=== PATIENT | female | born 1930 | race Caucasian/White ===

== ENCOUNTER 2018-07-19 04:31 | Inpatient (IN) | payer MEDICARE | END 2018-07-23 12:40 | disposition swing bed (61) | LOC: ICU 04:31 → 4TH 07-20 11:40 | DX: K56.690 Other partial intestinal obstruction (principal); I48.92 Unspecified atrial flutter; Q43.3 Congenital malformations of intestinal fixation; I13.0 Hypertensive heart and chronic kidney disease with heart failure and stage 1 through stage 4 chronic kidney disease, or unspecified chronic kidney disease; I50.32 Chronic diastolic (congestive) heart failure; N18.3 Chronic kidney disease, stage 3 (moderate); N17.9 Acute kidney failure, unspecified; J98.11 Atelectasis; L03.116 Cellulitis of left lower limb; L97.229 Non-pressure chronic ulcer of left calf with unspecified severity; I48.0 Paroxysmal atrial fibrillation; J44.9 Chronic obstructive pulmonary disease, unspecified; G47.33 Obstructive sleep apnea (adult) (pediatric); I89.0 Lymphedema, not elsewhere classified; I35.0 Nonrheumatic aortic (valve) stenosis; I87.2 Venous insufficiency (chronic) (peripheral); G62.9 Polyneuropathy, unspecified; I73.9 Peripheral vascular disease, unspecified; I27.29 Other secondary pulmonary hypertension; E78.5 Hyperlipidemia, unspecified; F41.9 Anxiety disorder, unspecified; F22 Delusional disorders; K21.9 Gastro-esophageal reflux disease without esophagitis; G30.9 Alzheimer's disease, unspecified; F02.80 Dementia in other diseases classified elsewhere, unspecified severity, without behavioral disturbance, psychotic disturbance, mood disturbance, and anxiety; D64.9 Anemia, unspecified; Z88.0 Allergy status to penicillin; Z88.4 Allergy status to anesthetic agent; Z88.8 Allergy status to other drugs, medicaments and biological substances ==

== ENCOUNTER 2018-07-23 12:47 | Inpatient (IN) | payer MEDICARE | END 2018-07-30 13:02 | disposition home health service (06) | LOC: 4TH 12:47 | DX: J18.1 Lobar pneumonia, unspecified organism (principal); K56.600 Partial intestinal obstruction, unspecified as to cause; J98.11 Atelectasis; I13.0 Hypertensive heart and chronic kidney disease with heart failure and stage 1 through stage 4 chronic kidney disease, or unspecified chronic kidney disease; I50.32 Chronic diastolic (congestive) heart failure; N18.3 Chronic kidney disease, stage 3 (moderate); I48.92 Unspecified atrial flutter; L03.116 Cellulitis of left lower limb; L97.229 Non-pressure chronic ulcer of left calf with unspecified severity; E87.0 Hyperosmolality and hypernatremia; I89.0 Lymphedema, not elsewhere classified; R31.9 Hematuria, unspecified; I48.0 Paroxysmal atrial fibrillation; J44.9 Chronic obstructive pulmonary disease, unspecified; G47.33 Obstructive sleep apnea (adult) (pediatric); G30.9 Alzheimer's disease, unspecified; F02.80 Dementia in other diseases classified elsewhere, unspecified severity, without behavioral disturbance, psychotic disturbance, mood disturbance, and anxiety; I35.0 Nonrheumatic aortic (valve) stenosis; I87.2 Venous insufficiency (chronic) (peripheral); I73.9 Peripheral vascular disease, unspecified; G62.9 Polyneuropathy, unspecified; I27.29 Other secondary pulmonary hypertension; E78.5 Hyperlipidemia, unspecified; F41.9 Anxiety disorder, unspecified; I65.23 Occlusion and stenosis of bilateral carotid arteries; M19.91 Primary osteoarthritis, unspecified site ==

== ENCOUNTER 2018-08-02 17:51 | Inpatient (IN) | payer MEDICARE ==
[~2018-08-02] VITALS: Ht 165.1 cm; Wt 83.0 kg
[~2018-08-02 17:51] MED LIST: ALPR.5T PO; APIX2.5T PO; ASP81TEC PO; ASPI-983 PO; CYAN5000 SL; FLUT1DIS26 IH; FURO20TA4 PO; FURO40TA4 PO; GABA-488 PO; GBPN600T PO; IRON45TA2 PO; LORA10TA7 PO; MAGN400C PO; METO-387 PO; MULT1CAP27 PO; NABU750T PO; OMEP20CA12 PO; OMG1KC PO; POTA10TA PO; POTA20TA15 PO; TRAM50TA2 PO; VLS80C PO
--- OUTSIDE RECORDS SUMMARY | 2018-08-02 17:55 | XMS REPORT | Continuity of Care Document ---
Author Author [facility] Organization [facility] Address Unknown Phone Unavailable Allergies Active Description Code Type Severity Reaction Onset Reported/Identified Relationship to Patient Clinical Status Yes celecoxib [id number] Drug Allergy Unknown N/A 07/19/2018 Yes hydrochlorothiazide [id number] Drug Allergy Unknown N/A 07/19/2018 Yes latex [id number] Drug Allergy Unknown N/A 07/19/2018 Yes Penicillins [id number] Drug Allergy Unknown N/A 07/19/2018 Yes rofecoxib [id number] Drug Allergy Unknown N/A 07/19/2018 Yes spironolactone [id number] Drug Allergy Unknown N/A 07/19/2018 Yes valdecoxib [id number] Drug Allergy Unknown N/A 07/19/2018 Medications There is no data. Problems Date Dx Coded Attending Type Code Diagnosis Diagnosed By 01/10/2015 KRISTY ANDERSON MD Ot 272.4 01/10/2015 KRISTY ANDERSON MD Ot 401.9 01/10/2015 KRISTY ANDERSON MD Ot 416.9 01/10/2015 KRISTY ANDERSON MD Ot 424.1 01/10/2015 KRISTY ANDERSON MD Ot 496 01/11/2015 KRISTY ANDERSON MD Ot 272.4 01/11/2015 KRISTY ANDERSON MD Ot 401.9 01/11/2015 KRISTY ANDERSON MD Ot 416.9 01/11/2015 KRISTY ANDERSON MD Ot 424.1 01/11/2015 KRISTY ANDERSON MD Ot 496 07/22/2018 ROSA ISELA TAN, ERICKA Hahn Ot D64.9 ANEMIA, UNSPECIFIED 07/22/2018 ERICKA NATARAJAN MD Ot E78.5 HYPERLIPIDEMIA, UNSPECIFIED 07/22/2018 ERICKA NATARAJAN MD Ot F02.80 DEMENTIA IN OTH DISEASES CLASSD ELSWHR W 07/22/2018 ERICKA NATARAJAN MD Ot F22 DELUSIONAL DISORDERS 07/22/2018 ERICKA NATARAJAN MD, Ot F41.9 ANXIETY DISORDER, UNSPECIFIED 07/22/2018 ERICKA NATARAJAN MD, Ot G30.9 ALZHEIMER'S DISEASE, UNSPECIFIED 07/22/2018 ERICKA NATARAJAN MD Ot G47.33 OBSTRUCTIVE SLEEP APNEA (ADULT) (PEDIATR 07/22/2018 ERICKA NATARAJAN MD, Ot G62.9 POLYNEUROPATHY, UNSPECIFIED 07/22/2018 ERICKA NATARAJAN MD Ot I13.0 HYP HRT CHR KDNY DIS W HRT FAIL AND ST 07/22/2018 ERICKA NATARAJAN MD, Ot 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 07/22/2018 ERICKA NATARAJAN MD Ot I35.0 NONRHEUMATIC AORTIC (VALVE) STENOSIS 07/22/2018 ERICKA NATARAJAN MD Ot I48.0 PAROXYSMAL ATRIAL FIBRILLATION 07/22/2018 ERICKA NATARAJAN MD Ot I48.92 UNSPECIFIED ATRIAL FLUTTER 07/22/2018 ERICKA NATARAJAN MD Ot I50.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 07/22/2018 ERICKA NATARAJAN MD Ot I73.9 PERIPHERAL VASCULAR DISEASE, UNSPECIFIED 07/22/2018 ERICKA NATARAJAN MD Ot I87.2 VENOUS INSUFFICIENCY (CHRONIC) (PERIPHER 07/22/2018 ERICKA NATARAJAN MD Ot I89.0 LYMPHEDEMA, NOT ELSEWHERE CLASSIFIED 07/22/2018 ERICKA NATARAJAN MD Ot J44.9 CHRONIC OBSTRUCTIVE PULMONARY DISEASE, U 07/22/2018 ERICKA NATARAJAN MD Ot J98.11 ATELECTASIS 07/22/2018 ERICKA NATARAJAN MD Ot K21.9 GASTRO-ESOPHAGEAL REFLUX DISEASE WITHOUT 07/22/2018 ERICKA NATARAJAN MD Ot K56.690 OTHER PARTIAL INTESTINAL OBSTRUCTION 07/22/2018 ERICKA NATARAJAN MD Ot L03.116 CELLULITIS OF LEFT LOWER LIMB 07/22/2018 ERICKA NATARAJAN MD Ot 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 07/22/2018 ERICKA NATARAJAN MD Ot N17.9 ACUTE KIDNEY FAILURE, UNSPECIFIED 07/22/2018 ERICKA NATARAJAN MD Ot N18.3 CHRONIC KIDNEY DISEASE, STAGE 3 (MODERAT 07/22/2018 ERICKA NATARAJAN MD Ot 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 07/22/2018 ERICKA NATARAJAN MD Ot Z88.0 ALLERGY STATUS TO PENICILLIN 07/22/2018 ERICKA NATARAJAN MD Ot Z88.4 ALLERGY STATUS TO ANESTHETIC AGENT STATU 07/22/2018 ERICKA NATARAJAN MD Ot Z88.8 ALLERGY STATUS TO OTH DRUG/MEDS/BIOL SUB 07/23/2018 ERICKA NATARAJAN MD Ot D64.9 ANEMIA, UNSPECIFIED 07/23/2018 ERICKA NATARAJAN MD Ot E78.5 HYPERLIPIDEMIA, UNSPECIFIED 07/23/2018 ERICKA NATARAJAN MD Ot F02.80 DEMENTIA IN [facility] DISEASES CLASSD ELSWHR W 07/23/2018 ERICKA NATARAJAN MD Ot F22 DELUSIONAL DISORDERS 07/23/2018 ERICKA NATARAJAN MD Ot F41.9 ANXIETY DISORDER, UNSPECIFIED 07/23/2018 ERICKA NATARAJAN MD Ot G30.9 ALZHEIMER'S DISEASE, UNSPECIFIED 07/23/2018 ERICKA NATARAJAN MD Ot G47.33 OBSTRUCTIVE SLEEP APNEA (ADULT) (PEDIATR 07/23/2018 ERICKA NATARAJAN MD Ot G62.9 POLYNEUROPATHY, UNSPECIFIED 07/23/2018 ERICKA NATARAJAN MD Ot I13.0 HYP HRT CHR KDNY DIS W HRT FAIL AND ST 07/23/2018 ERICKA NATARAJAN MD Ot 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 07/23/2018 ERICKA NATARAJAN MD Ot I35.0 NONRHEUMATIC AORTIC (VALVE) STENOSIS 07/23/2018 ERICKA NATARAJAN MD Ot I48.0 PAROXYSMAL ATRIAL FIBRILLATION 07/23/2018 ERICKA NATARAJAN MD Ot I48.92 UNSPECIFIED ATRIAL FLUTTER 07/23/2018 ERICKA NATARAJAN MD Ot I50.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 07/23/2018 ERICKA NATARAJAN MD Ot I73.9 PERIPHERAL VASCULAR DISEASE, UNSPECIFIED 07/23/2018 ERICKA NATARAJAN MD Ot I87.2 VENOUS INSUFFICIENCY (CHRONIC) (PERIPHER 07/23/2018 ERICKA NATARAJAN MD Ot I89.0 LYMPHEDEMA, NOT ELSEWHERE CLASSIFIED 07/23/2018 ERICKA NATARAJAN MD, Ot J44.9 CHRONIC OBSTRUCTIVE PULMONARY DISEASE, U 07/23/2018 ERICKA NATARAJAN MD, Ot J98.11 ATELECTASIS 07/23/2018 ERICKA NATARAJAN MD, Ot K21.9 GASTRO-ESOPHAGEAL REFLUX DISEASE WITHOUT 07/23/2018 ERICKA NATARAJAN MD Ot K56.690 OTHER PARTIAL INTESTINAL OBSTRUCTION 07/23/2018 ERICKA NATARAJAN MD Ot L03.116 CELLULITIS OF LEFT LOWER LIMB 07/23/2018 ERICKA NATARAJAN MD Ot 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 07/23/2018 ERICKA NATARAJAN MD Ot N17.9 ACUTE KIDNEY FAILURE, UNSPECIFIED 07/23/2018 ERICKA NATARAJAN MD Ot N18.3 CHRONIC KIDNEY DISEASE, STAGE 3 (MODERAT 07/23/2018 ERICKA NATARAJAN MD Ot 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 07/23/2018 ERICKA NATARAJAN MD Ot Z88.0 ALLERGY STATUS TO PENICILLIN 07/23/2018 ERICKA NATARAJAN MD Ot Z88.4 ALLERGY STATUS TO ANESTHETIC AGENT STATU 07/23/2018 ERICKA NATARAJAN MD Ot Z88.8 ALLERGY STATUS TO [facility] DRUG/MEDS/BIOL SUB 07/23/2018 ERICKA NATARAJAN MD Ot D64.9 ANEMIA, UNSPECIFIED 07/23/2018 ERICKA NATARAJAN MD Ot E78.5 HYPERLIPIDEMIA, UNSPECIFIED 07/23/2018 ERICKA NATARAJAN MD Ot E87.1 HYPO-OSMOLALITY AND HYPONATREMIA 07/23/2018 ERICKA NATARAJAN MD Ot F02.80 DEMENTIA IN OT DISEASES CLASSD ELSWHR W 07/23/2018 ERICKA NATARAJAN MD Ot F22 DELUSIONAL DISORDERS 07/23/2018 ERICKA NATARAJAN MD Ot F41.9 ANXIETY DISORDER, UNSPECIFIED 07/23/2018 ERICKA NATARAJAN MD, Ot G30.9 ALZHEIMER'S DISEASE, UNSPECIFIED 07/23/2018 ERICKA NATARAJAN MD Ot G47.33 OBSTRUCTIVE SLEEP APNEA (ADULT) (PEDIATR 07/23/2018 ERICKA NATARAJAN MD, Ot G62.9 POLYNEUROPATHY, UNSPECIFIED 07/23/2018 ERICKA NATARAJAN MD, Ot I13.0 HYP HRT CHR KDNY DIS W HRT FAIL AND ST 07/23/2018 ERICKA NATARAJAN MD, Ot 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 07/23/2018 ERICKA NATARAJAN MD Ot I35.0 NONRHEUMATIC AORTIC (VALVE) STENOSIS 07/23/2018 ERICKA NATARAJAN MD, Ot I48.0 PAROXYSMAL ATRIAL FIBRILLATION 07/23/2018 ERICKA NATARAJAN MD, Ot I48.92 UNSPECIFIED ATRIAL FLUTTER 07/23/2018 ERICKA NATARAJAN MD Ot I50.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 07/23/2018 ERICKA NATARAJAN MD Ot I73.9 PERIPHERAL VASCULAR DISEASE, UNSPECIFIED 07/23/2018 ERICKA NATARAJAN MD Ot I87.2 VENOUS INSUFFICIENCY (CHRONIC) (PERIPHER 07/23/2018 ERICKA NATARAJAN MD Ot I89.0 LYMPHEDEMA, NOT ELSEWHERE CLASSIFIED 07/23/2018 ERICKA NATARAJAN MD, Ot J18.9 PNEUMONIA, UNSPECIFIED ORGANISM 07/23/2018 ERICKA NATARAJAN MD Ot J44.9 CHRONIC OBSTRUCTIVE PULMONARY DISEASE, U 07/23/2018 ERICKA NATARAJAN MD Ot J98.11 ATELECTASIS 07/23/2018 ERICKA NATARAJAN MD Ot K21.9 GASTRO-ESOPHAGEAL REFLUX DISEASE WITHOUT 07/23/2018 ERICKA NATARAJAN MD Ot K56.690 OTHER PARTIAL INTESTINAL OBSTRUCTION 07/23/2018 ERICKA NATARAJAN MD Ot L03.116 CELLULITIS OF LEFT LOWER LIMB 07/23/2018 ERICKA NATARAJAN MD Ot 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 Results Test Result Range Methicillin resistant Staphylococcus aureus (MRSA) screening culture - 05:10 Methicillin resistant Staphylococcus aureus (MRSA) screening culture NEG NRG Complete blood count (CBC) with automated white blood cell (WBC) differential - 07/19/18 06:31 Blood leukocytes automated count (number/volume) 11.0 10*3/uL 4.3-11.0 Blood erythrocytes automated count (number/volume) 3.88 10*6/uL 4.35-5.85 Venous blood hemoglobin measurement (mass/volume) 11.5 g/dL 11.5-16.0 Blood hematocrit (volume fraction) 36 % 35-52 Automated erythrocyte mean corpuscular volume 93 [foz_us] 80-99 Automated erythrocyte mean corpuscular hemoglobin (mass per erythrocyte) 30 pg 25-34 Automated erythrocyte mean corpuscular hemoglobin concentration measurement ( mass/volume) 32 g/dL 32-36 Automated erythrocyte distribution width ratio 13.8 % 10.0-14.5 Automated blood platelet count (count/volume) 442 10*3/uL 130-400 Automated blood platelet mean volume measurement 9.3 [foz_us] 7.4-10.4 Automated blood neutrophils/100 leukocytes 86 % 42-75 Automated blood lymphocytes/100 leukocytes 6 % 12-44 Blood monocytes/100 leukocytes 7 % 0-12 Automated blood eosinophils/100 leukocytes 0 % 0-10 Automated blood basophils/100 leukocytes 0 % 0-10 Blood neutrophils automated count (number/volume) 9.4 10*3 1.8-7.8 Blood lymphocytes automated count (number/volume) 0.7 10*3 1.0-4.0 Blood monocytes automated count (number/volume) 0.8 10*3 0.0-1.0 Automated eosinophil count 0.0 10*3/uL 0.0-0.3 Automated blood basophil count (count/volume) 0.0 10*3/uL 0.0-0.1 Blood lactic acid measurement (moles/volume) - 07/19/18 06:31 Blood lactic acid measurement (moles/volume) 1.22 mmol/L 0.50-2.00 Comprehensive metabolic panel - 07/19/18 06:31 Serum or plasma sodium measurement (moles/volume) 144 mmol/L 135-145 Serum or plasma potassium measurement (moles/volume) 4.5 mmol/L 3.6-5.0 Serum or plasma chloride measurement (moles/volume) 101 mmol/L 98-107 Carbon dioxide 29 mmol/L 21-32 Serum or plasma anion gap determination (moles/volume) 14 mmol/L 5-14 Serum or plasma urea nitrogen measurement (mass/volume) 55 mg/dL 7-18 Serum or plasma creatinine measurement (mass/volume) 2.35 mg/dL 0.60-1.30 Serum or plasma urea nitrogen/creatinine mass ratio 23 NRG Serum or plasma creatinine measurement with calculation of estimated glomerular filtration rate 19 NRG Serum or plasma glucose measurement (mass/volume) 129 mg/dL 70-105 Serum or plasma calcium measurement (mass/volume) 8.7 mg/dL 8.5-10.1 Serum or plasma total bilirubin measurement (mass/volume) 0.7 mg/dL 0.1-1.0 Serum or plasma alkaline phosphatase measurement (enzymatic activity/volume) 60 U/L 40-136 Serum or plasma aspartate aminotransferase measurement (enzymatic activity/ volume) 14 U/L 5-34 Serum or plasma alanine aminotransferase measurement (enzymatic activity/volume ) 8 U/L 0-55 Serum or plasma protein measurement (mass/volume) 6.1 g/dL 6.4-8.2 Serum or plasma albumin measurement (mass/volume) 3.0 g/dL 3.2-4.5 CALCIUM CORRECTED 9.5 mg/dL 8.5-10.1 Serum or plasma phosphate measurement (mass/volume) - 07/19/18 06:31 Serum or plasma phosphate measurement (mass/volume) 6.0 mg/dL 2.3-4.7 Magnesium - 07/19/18 06:31 Magnesium 2.2 mg/dL 1.8-2.4 Serum or plasma C reactive protein measurement (mass/volume) - 07/19/18 06:31 Serum or plasma C reactive protein measurement (mass/volume) 6.58 mg /dL 0.00-0.50 Automated blood complete blood count (hemogram) panel - 07/19/18 09:30 Blood leukocytes automated count (number/volume) 9.7 10*3/uL 4.3-11.0 Blood erythrocytes automated count (number/volume) 3.85 10*6/uL 4.35-5.85 Venous blood hemoglobin measurement (mass/volume) 11.5 g/dL 11.5-16.0 Blood hematocrit (volume fraction) 36 % 35-52 Automated erythrocyte mean corpuscular volume 94 [foz_us] 80-99 Automated erythrocyte mean corpuscular hemoglobin (mass per erythrocyte) 30 pg 25-34 Automated erythrocyte mean corpuscular hemoglobin concentration measurement ( mass/volume) 32 g/dL 32-36 Automated erythrocyte distribution width ratio 14.0 % 10.0-14.5 Automated blood platelet count (count/volume) 434 10*3/uL 130-400 Automated blood platelet mean volume measurement 9.0 [foz_us] 7.4-10.4 Activated partial thromboplastin time (aPTT) in platelet poor plasma bycoagulation assay - 07/19/18 13:20 Activated partial thromboplastin time (aPTT) in platelet poor plasma bycoagulation assay 105 s 24-35 Whole blood hemoglobin and hematocrit panel - 07/19/18 21:05 Venous blood hemoglobin measurement (mass/volume) 10.3 g/dL 11.5-16.0 Blood hematocrit (volume fraction) 33 % 35-52 Stool occult blood screen - 07/19/18 21:10 Stool gastrointestinal hemoglobin detection NEGATIVE NEGATIVE Activated partial thromboplastin time (aPTT) in platelet poor plasma bycoagulation assay - 07/19/18 22:30 Activated partial thromboplastin time (aPTT) in platelet poor plasma bycoagulation assay 49 s 24-35 Complete blood count (CBC) with automated white blood cell (WBC) differential - 07/20/18 04:10 Blood leukocytes automated count (number/volume) 8.2 10*3/uL 4.3-11.0 Blood erythrocytes automated count (number/volume) 3.67 10*6/uL 4.35-5.85 Venous blood hemoglobin measurement (mass/volume) 10.8 g/dL 11.5-16.0 Blood hematocrit (volume fraction) 35 % 35-52 Automated erythrocyte mean corpuscular volume 96 [foz_us] 80-99 Automated erythrocyte mean corpuscular hemoglobin (mass per erythrocyte) 29 pg 25-34 Automated erythrocyte mean corpuscular hemoglobin concentration measurement ( mass/volume) 31 g/dL 32-36 Automated erythrocyte distribution width ratio 13.7 % 10.0-14.5 Automated blood platelet count (count/volume) 369 10*3/uL 130-400 Automated blood platelet mean volume measurement 9.5 [foz_us] 7.4-10.4 Automated blood neutrophils/100 leukocytes 77 % 42-75 Automated blood lymphocytes/100 leukocytes 13 % 12-44 Blood monocytes/100 leukocytes 10 % 0-12 Automated blood eosinophils/100 leukocytes 1 % 0-10 Automated blood basophils/100 leukocytes 0 % 0-10 Blood neutrophils automated count (number/volume) 6.3 10*3 1.8-7.8 Blood lymphocytes automated count (number/volume) 1.1 10*3 1.0-4.0 Blood monocytes automated count (number/volume) 0.8 10*3 0.0-1.0 Automated eosinophil count 0.0 10*3/uL 0.0-0.3 Automated blood basophil count (count/volume) 0.0 10*3/uL 0.0-0.1 Whole blood basic metabolic panel - 07/20/18 04:10 Serum or plasma sodium measurement (moles/volume) 148 mmol/L 135-145 Serum or plasma potassium measurement (moles/volume) 4.0 mmol/L 3.6-5.0 Serum or plasma chloride measurement (moles/volume) 107 mmol/L 98-107 Carbon dioxide 29 mmol/L 21-32 Serum or plasma anion gap determination (moles/volume) 12 mmol/L 5-14 Serum or plasma urea nitrogen measurement (mass/volume) 51 mg/dL 7-18 Serum or plasma creatinine measurement (mass/volume) 1.70 mg/dL 0.60-1.30 Serum or plasma urea nitrogen/creatinine mass ratio 30 NRG Serum or plasma creatinine measurement with calculation of estimated glomerular filtration rate 28 NRG Serum or plasma glucose measurement (mass/volume) 106 mg/dL 70-105 Serum or plasma calcium measurement (mass/volume) 8.3 mg/dL 8.5-10.1 Serum or plasma phosphate measurement (mass/volume) - 07/20/18 04:10 Serum or plasma phosphate measurement (mass/volume) 4.4 mg/dL 2.3-4.7 Magnesium - 07/20/18 04:10 Magnesium 2.1 mg/dL 1.8-2.4 Activated partial thromboplastin time (aPTT) in platelet poor plasma bycoagulation assay - 07/20/18 04:10 Activated partial thromboplastin time (aPTT) in platelet poor plasma bycoagulation assay 65 s 24-35 Activated partial thromboplastin time (aPTT) in platelet poor plasma bycoagulation assay - 07/20/18 11:35 Activated partial thromboplastin time (aPTT) in platelet poor plasma bycoagulation assay 54 s 24-35 Complete blood count (CBC) with automated white blood cell (WBC) differential - 07/22/18 04:55 Blood leukocytes automated count (number/volume) 9.4 10*3/uL 4.3-11.0 Blood erythrocytes automated count (number/volume) 3.63 10*6/uL 4.35-5.85 Venous blood hemoglobin measurement (mass/volume) 10.6 g/dL 11.5-16.0 Blood hematocrit (volume fraction) 35 % 35-52 Automated erythrocyte mean corpuscular volume 98 [foz_us] 80-99 Automated erythrocyte mean corpuscular hemoglobin (mass per erythrocyte) 29 pg 25-34 Automated erythrocyte mean corpuscular hemoglobin concentration measurement ( mass/volume) 30 g/dL 32-36 Automated erythrocyte distribution width ratio 13.9 % 10.0-14.5 Automated blood platelet count (count/volume) 350 10*3/uL 130-400 Automated blood platelet mean volume measurement 9.5 [foz_us] 7.4-10.4 Automated blood neutrophils/100 leukocytes 84 % 42-75 Automated blood lymphocytes/100 leukocytes 9 % 12-44 Blood monocytes/100 leukocytes 7 % 0-12 Automated blood eosinophils/100 leukocytes 0 % 0-10 Automated blood basophils/100 leukocytes 0 % 0-10 Blood neutrophils automated count (number/volume) 7.9 10*3 1.8-7.8 Blood lymphocytes automated count (number/volume) 0.9 10*3 1.0-4.0 Blood monocytes automated count (number/volume) 0.6 10*3 0.0-1.0 Automated eosinophil count 0.0 10*3/uL 0.0-0.3 Automated blood basophil count (count/volume) 0.0 10*3/uL 0.0-0.1 Comprehensive metabolic panel - 07/22/18 04:55 Serum or plasma sodium measurement (moles/volume) 153 mmol/L 135-145 Serum or plasma potassium measurement (moles/volume) 3.5 mmol/L 3.6-5.0 Serum or plasma chloride measurement (moles/volume) 116 mmol/L 98-107 Carbon dioxide 27 mmol/L 21-32 Serum or plasma anion gap determination (moles/volume) 10 mmol/L 5-14 Serum or plasma urea nitrogen measurement (mass/volume) 43 mg/dL 7-18 Serum or plasma creatinine measurement (mass/volume) 1.21 mg/dL 0.60-1.30 Serum or plasma urea nitrogen/creatinine mass ratio 36 NRG Serum or plasma creatinine measurement with calculation of estimated glomerular filtration rate 42 NRG Serum or plasma glucose measurement (mass/volume) 90 mg/dL 70-105 Serum or plasma calcium measurement (mass/volume) 8.4 mg/dL 8.5-10.1 Serum or plasma total bilirubin measurement (mass/volume) 0.8 mg/dL 0.1-1.0 Serum or plasma alkaline phosphatase measurement (enzymatic activity/volume) 49 U/L 40-136 Serum or plasma aspartate aminotransferase measurement (enzymatic activity/ volume) 15 U/L 5-34 Serum or plasma alanine aminotransferase measurement (enzymatic activity/volume ) 7 U/L 0-55 Serum or plasma protein measurement (mass/volume) 5.4 g/dL 6.4-8.2 Serum or plasma albumin measurement (mass/volume) 2.8 g/dL 3.2-4.5 CALCIUM CORRECTED 9.4 mg/dL 8.5-10.1 Complete urinalysis with reflex to culture - 07/22/18 11:00 Urine color determination YELLOW NRG Urine clarity determination CLEAR NRG Urine pH measurement by test strip 5 5-9 Specific gravity of urine by test strip 1.010 1.016- 1.022 Urine protein assay by test strip, semi-quantitative 2+ NEGATIVE Urine glucose detection by automated test strip NEGATIVE NEGATIVE Erythrocytes detection in urine sediment by light microscopy 5+ NEGATIVE Urine ketones detection by automated test strip NEGATIVE NEGATIVE Urine nitrite detection by test strip NEGATIVE NEGATIVE Urine total bilirubin detection by test strip NEGATIVE NEGATIVE Urine urobilinogen measurement by automated test strip (mass/volume) NORMAL NORMAL Urine leukocyte esterase detection by dipstick NEGATIVE NEGATIVE Automated urine sediment erythrocyte count by microscopy (number/high power field) [HPF] NRG Automated urine sediment leukocyte count by microscopy (number/high power field ) NONE NRG Bacteria detection in urine sediment by light microscopy NEGATIVE NRG Squamous epithelial cells detection in urine sediment by light microscopy NONE NRG Crystals detection in urine sediment by light microscopy NONE NRG Casts detection in urine sediment by light microscopy NONE NRG Mucus detection in urine sediment by light microscopy NEGATIVE NRG Complete urinalysis with reflex to culture NO NRG Bacterial blood culture - 07/22/18 14:32 Bacterial blood culture NG NRG Blood lactic acid measurement (moles/volume) - 07/22/18 14:33 Blood lactic acid measurement (moles/volume) 0.69 mmol/L 0.50-2.00 Bacterial blood culture - 07/22/18 14:37 Bacterial blood culture NG NRG Complete blood count (CBC) with automated white blood cell (WBC) differential - 07/23/18 04:50 Blood leukocytes automated count (number/volume) 9.3 10*3/uL 4.3-11.0 Blood erythrocytes automated count (number/volume) 3.66 10*6/uL 4.35-5.85 Venous blood hemoglobin measurement (mass/volume) 10.8 g/dL 11.5-16.0 Blood hematocrit (volume fraction) 36 % 35-52 Automated erythrocyte mean corpuscular volume 97 [foz_us] 80-99 Automated erythrocyte mean corpuscular hemoglobin (mass per erythrocyte) 30 pg 25-34 Automated erythrocyte mean corpuscular hemoglobin concentration measurement ( mass/volume) 30 g/dL 32-36 Automated erythrocyte distribution width ratio 13.9 % 10.0-14.5 Automated blood platelet count (count/volume) 345 10*3/uL 130-400 Automated blood platelet mean volume measurement 9.3 [foz_us] 7.4-10.4 Automated blood neutrophils/100 leukocytes 77 % 42-75 Automated blood lymphocytes/100 leukocytes 11 % 12-44 Blood monocytes/100 leukocytes 10 % 0-12 Automated blood eosinophils/100 leukocytes 3 % 0-10 Automated blood basophils/100 leukocytes 0 % 0-10 Blood neutrophils automated count (number/volume) 7.1 10*3 1.8-7.8 Blood lymphocytes automated count (number/volume) 1.0 10*3 1.0-4.0 Blood monocytes automated count (number/volume) 0.9 10*3 0.0-1.0 Automated eosinophil count 0.3 10*3/uL 0.0-0.3 Automated blood basophil count (count/volume) 0.0 10*3/uL 0.0-0.1 Whole blood basic metabolic panel - 07/23/18 04:50 Serum or plasma sodium measurement (moles/volume) 150 mmol/L 135-145 Serum or plasma potassium measurement (moles/volume) 3.1 mmol/L 3.6-5.0 Serum or plasma chloride measurement (moles/volume) 113 mmol/L 98-107 Carbon dioxide 30 mmol/L 21-32 Serum or plasma anion gap determination (moles/volume) 7 mmol/L 5-14 Serum or plasma urea nitrogen measurement (mass/volume) 36 mg/dL 7-18 Serum or plasma creatinine measurement (mass/volume) 1.12 mg/dL 0.60-1.30 Serum or plasma urea nitrogen/creatinine mass ratio 32 NRG Serum or plasma creatinine measurement with calculation of estimated glomerular filtration rate 46 NRG Serum or plasma glucose measurement (mass/volume) 132 mg/dL 70-105 Serum or plasma calcium measurement (mass/volume) 8.4 mg/dL 8.5-10.1 Complete blood count (CBC) with automated white blood cell (WBC) differential - 07/24/18 05:28 Blood leukocytes automated count (number/volume) 9.1 10*3/uL 4.3-11.0 Blood erythrocytes automated count (number/volume) 3.54 10*6/uL 4.35-5.85 Venous blood hemoglobin measurement (mass/volume) 10.4 g/dL 11.5-16.0 Blood hematocrit (volume fraction) 34 % 35-52 Automated erythrocyte mean corpuscular volume 97 [foz_us] 80-99 Automated erythrocyte mean corpuscular hemoglobin (mass per erythrocyte) 29 pg 25-34 Automated erythrocyte mean corpuscular hemoglobin concentration measurement ( mass/volume) 30 g/dL 32-36 Automated erythrocyte distribution width ratio 13.6 % 10.0-14.5 Automated blood platelet count (count/volume) 301 10*3/uL 130-400 Automated blood platelet mean volume measurement 10.1 [foz_us] 7.4-10.4 Automated blood neutrophils/100 leukocytes 74 % 42-75 Automated blood lymphocytes/100 leukocytes 12 % 12-44 Blood monocytes/100 leukocytes 9 % 0-12 Automated blood eosinophils/100 leukocytes 5 % 0-10 Automated blood basophils/100 leukocytes 0 % 0-10 Blood neutrophils automated count (number/volume) 6.7 10*3 1.8-7.8 Blood lymphocytes automated count (number/volume) 1.1 10*3 1.0-4.0 Blood monocytes automated count (number/volume) 0.8 10*3 0.0-1.0 Automated eosinophil count 0.4 10*3/uL 0.0-0.3 Automated blood basophil count (count/volume) 0.0 10*3/uL 0.0-0.1 Whole blood basic metabolic panel - 07/24/18 05:28 Serum or plasma sodium measurement (moles/volume) 146 mmol/L 135-145 Serum or plasma potassium measurement (moles/volume) 3.4 mmol/L 3.6-5.0 Serum or plasma chloride measurement (moles/volume) 109 mmol/L 98-107 Carbon dioxide 30 mmol/L 21-32 Serum or plasma anion gap determination (moles/volume) 7 mmol/L 5-14 Serum or plasma urea nitrogen measurement (mass/volume) 28 mg/dL 7-18 Serum or plasma creatinine measurement (mass/volume) 1.04 mg/dL 0.60-1.30 Serum or plasma urea nitrogen/creatinine mass ratio 27 NRG Serum or plasma creatinine measurement with calculation of estimated glomerular filtration rate 50 NRG Serum or plasma glucose measurement (mass/volume) 119 mg/dL 70-105 Serum or plasma calcium measurement (mass/volume) 8.2 mg/dL 8.5-10.1 Whole blood basic metabolic panel - 07/25/18 09:55 Serum or plasma sodium measurement (moles/volume) 139 mmol/L 135-145 Serum or plasma potassium measurement (moles/volume) 3.7 mmol/L 3.6-5.0 Serum or plasma chloride measurement (moles/volume) 102 mmol/L 98-107 Carbon dioxide 30 mmol/L 21-32 Serum or plasma anion gap determination (moles/volume) 7 mmol/L 5-14 Serum or plasma urea nitrogen measurement (mass/volume) 22 mg/dL 7-18 Serum or plasma creatinine measurement (mass/volume) 0.94 mg/dL 0.60-1.30 Serum or plasma urea nitrogen/creatinine mass ratio 23 NRG Serum or plasma creatinine measurement with calculation of estimated glomerular filtration rate 56 NRG Serum or plasma glucose measurement (mass/volume) 112 mg/dL 70-105 Serum or plasma calcium measurement (mass/volume) 8.0 mg/dL 8.5-10.1 Serum or plasma lithium measurement (moles/volume) - 07/27/18 08:50 BNP level 261.5 pg/mL <100.0 Automated blood complete blood count (hemogram) panel - 07/28/18 05:25 Blood leukocytes automated count (number/volume) 21.5 10*3/uL 4.3-11.0 Blood erythrocytes automated count (number/volume) 3.49 10*6/uL 4.35-5.85 Venous blood hemoglobin measurement (mass/volume) 10.3 g/dL 11.5-16.0 Blood hematocrit (volume fraction) 32 % 35-52 Automated erythrocyte mean corpuscular volume 93 [foz_us] 80-99 Automated erythrocyte mean corpuscular hemoglobin (mass per erythrocyte) 30 pg 25-34 Automated erythrocyte mean corpuscular hemoglobin concentration measurement ( mass/volume) 32 g/dL 32-36 Automated erythrocyte distribution width ratio 13.4 % 10.0-14.5 Automated blood platelet count (count/volume) 333 10*3/uL 130-400 Automated blood platelet mean volume measurement 10.6 [foz_us] 7.4-10.4 Comprehensive metabolic panel - 07/28/18 05:25 Serum or plasma sodium measurement (moles/volume) 131 mmol/L 135-145 Serum or plasma potassium measurement (moles/volume) 3.9 mmol/L 3.6-5.0 Serum or plasma chloride measurement (moles/volume) 98 mmol/L 98-107 Carbon dioxide 26 mmol/L 21-32 Serum or plasma anion gap determination (moles/volume) 7 mmol/L 5-14 Serum or plasma urea nitrogen measurement (mass/volume) 24 mg/dL 7-18 Serum or plasma creatinine measurement (mass/volume) 1.09 mg/dL 0.60-1.30 Serum or plasma urea nitrogen/creatinine mass ratio 22 NRG Serum or plasma creatinine measurement with calculation of estimated glomerular filtration rate 47 NRG Serum or plasma glucose measurement (mass/volume) 88 mg/dL 70-105 Serum or plasma calcium measurement (mass/volume) 7.6 mg/dL 8.5-10.1 Serum or plasma total bilirubin measurement (mass/volume) 1.2 mg/dL 0.1-1.0 Serum or plasma alkaline phosphatase measurement (enzymatic activity/volume) 53 U/L 40-136 Serum or plasma aspartate aminotransferase measurement (enzymatic activity/ volume) 15 U/L 5-34 Serum or plasma alanine aminotransferase measurement (enzymatic activity/volume ) 12 U/L 0-55 Serum or plasma protein measurement (mass/volume) 4.7 g/dL 6.4-8.2 Serum or plasma albumin measurement (mass/volume) 2.2 g/dL 3.2-4.5 CALCIUM CORRECTED 9.0 mg/dL 8.5-10.1 Blood lactic acid measurement (moles/volume) - 07/28/18 08:00 Blood lactic acid measurement (moles/volume) 0.60 mmol/L 0.50-2.00 Bacterial blood culture - 07/28/18 08:00 Bacterial blood culture NG NRG Bacterial blood culture - 07/28/18 08:05 Bacterial blood culture NG NRG Methicillin resistant Staphylococcus aureus (MRSA) screening culture - 11:30 MRSA SCREEN RESULT MRSA ISOLATED NRG Complete blood count (CBC) with automated white blood cell (WBC) differential - 07/30/18 07:50 Blood leukocytes automated count (number/volume) 11.9 10*3/uL 4.3-11.0 Blood erythrocytes automated count (number/volume) 3.24 10*6/uL 4.35-5.85 Venous blood hemoglobin measurement (mass/volume) 9.5 g/dL 11.5-16.0 Blood hematocrit (volume fraction) 30 % 35-52 Automated erythrocyte mean corpuscular volume 92 [foz_us] 80-99 Automated erythrocyte mean corpuscular hemoglobin (mass per erythrocyte) 29 pg 25-34 Automated erythrocyte mean corpuscular hemoglobin concentration measurement ( mass/volume) 32 g/dL 32-36 Automated erythrocyte distribution width ratio 13.6 % 10.0-14.5 Automated blood platelet count (count/volume) 369 10*3/uL 130-400 Automated blood platelet mean volume measurement 9.4 [foz_us] 7.4-10.4 Automated blood neutrophils/100 leukocytes 80 % 42-75 Automated blood lymphocytes/100 leukocytes 7 % 12-44 Blood monocytes/100 leukocytes 10 % 0-12 Automated blood eosinophils/100 leukocytes 2 % 0-10 Automated blood basophils/100 leukocytes 0 % 0-10 Blood neutrophils automated count (number/volume) 9.5 10*3 1.8-7.8 Blood lymphocytes automated count (number/volume) 0.8 10*3 1.0-4.0 Blood monocytes automated count (number/volume) 1.2 10*3 0.0-1.0 Automated eosinophil count 0.3 10*3/uL 0.0-0.3 Automated blood basophil count (count/volume) 0.0 10*3/uL 0.0-0.1 Comprehensive metabolic panel - 07/30/18 07:50 Serum or plasma sodium measurement (moles/volume) 135 mmol/L 135-145 Serum or plasma potassium measurement (moles/volume) 3.5 mmol/L 3.6-5.0 Serum or plasma chloride measurement (moles/volume) 101 mmol/L 98-107 Carbon dioxide 28 mmol/L 21-32 Serum or plasma anion gap determination (moles/volume) 6 mmol/L 5-14 Serum or plasma urea nitrogen measurement (mass/volume) 23 mg/dL 7-18 Serum or plasma creatinine measurement (mass/volume) 0.93 mg/dL 0.60-1.30 Serum or plasma urea nitrogen/creatinine mass ratio 25 NRG Serum or plasma creatinine measurement with calculation of estimated glomerular filtration rate 57 NRG Serum or plasma glucose measurement (mass/volume) 85 mg/dL 70-105 Serum or plasma calcium measurement (mass/volume) 7.9 mg/dL 8.5-10.1 Serum or plasma total bilirubin measurement (mass/volume) 1.1 mg/dL 0.1-1.0 Serum or plasma alkaline phosphatase measurement (enzymatic activity/volume) 63 U/L 40-136 Serum or plasma aspartate aminotransferase measurement (enzymatic activity/ volume) 19 U/L 5-34 Serum or plasma alanine aminotransferase measurement (enzymatic activity/volume ) 14 U/L 0-55 Serum or plasma protein measurement (mass/volume) 4.7 g/dL 6.4-8.2 Serum or plasma albumin measurement (mass/volume) 2.3 g/dL 3.2-4.5 CALCIUM CORRECTED 9.3 mg/dL 8.5-10.1 Encounters ACCT No. Visit Date/Time Discharge Status Pt. Type Provider Facility Loc./Unit Complaint [id number] 07/23/2018 12:47:00 07/30/2018 13:02:00 DIS Inpatient RIMMA TAN, CHARLIE Hahn [facility] 4TH SWB, SBO [id number] 07/19/2018 04:31:00 07/23/2018 12:40:00 DIS Outpatient ROSA ISELA TAN, ERICKA Hahn [facility] 4TH DUEODEUM OBSTRUCTION [id number] 12/19/2014 10:58:00 12/19/2014 23:59:59 CLS Outpatient JUSTIN TAN, KRISTY Koo [facility] CARD [id number] 10/24/2013 09:41:00 10/24/2013 23:59:59 CLS Outpatient [id number] 12/09/2012 10:46:00 12/09/2012 23:59:59 CLS Outpatient
[2018-08-02] MEDS ORDERED: LACTATED RINGERS 1,000 ML IV ONE (17:59)
[2018-08-02] MEDS ORDERED: CEFEPIME INJECTION 1,000 MG in NS (IVPB) 50 ML IV ONE (18:00)
[2018-08-02] MEDS ORDERED: DEXAMETHASONE 4 MG/ML SDV (DECADRON) IH ONE (18:00)
[2018-08-02] MEDS ORDERED: RT-ALBUTEROL/IPRATROPIUM 3 ML (DUONEB) VIAL INH ONE (18:00)
--- NOTE | 2018-08-02 18:11 | ED Respiratory ---
General Stated Complaint: DECREASED LOC Source: family (NIECE AND [id number]), EMS Exam Limitations: other (PT APPEARS CONFUSED AND IS UNABLE TO GIVE ANY SIGNIFICANT INFORMATION--DOES NOT KNOW WHY SHE IS HERE OR WHERE SHE IS) History of Present Illness Date Seen by Provider: Aug 02, 2018 Time Seen by Provider: 17:52 Initial Comments PT [facility] FROM [facility], FROM HOME EMS REPORT THAT VICKIE CALLED AND THE ONLY INFORMATION SHE COULD GIVE WAS " THINK THE PNEUMONIA'S BACK" PT WAS ADMITTED HERE LAST WEEK FOR PNEUMONIA AND DISMISSED Thursday07/30/18 EMS REPORT THAT PT HAD HOME HEALTH NURSE THERE THIS MORNING PT WAS ON HOME O2 AND O2 SAT WAS IN UPPER 90'S PER EMS EMS REPORT THAT PT HAD DECREASED MENTATION AND ONLY RESPONDED TO STERNAL RUB WHEN THEY ARRIVED AT THE SCENE. EMS REPORT THAT PT WAS ABLE TO STAND WITH ASSIST FOR TRANSFER TO EMS COT. EMS REPORT THAT PT HAS INCREASED MENTATION NOW BUT IS CONFUSED. EMS REPORT THAT PT WAS JUST DX WITH ATRIAL FIBRILLATION WITH THIS RECENT HOSPITALIZATION, HEART RATE HAS BEEN IN 60'S-70'S FOR EMS BP HAS BEEN LOW--INITIAL BP WAS 100/53, EMS GAVE 250 ML BOLUS OF SALINE, BP 110/ 59, THEN DROPPED TO 95/70 NO OTHER TREATMENT OR INTERVENTION FROM EMS. ON DIRECT QUESTIONING IF SHE IS HAVING A HARD TIME BREATHING, SHE STATES "YES" WHEN ASKED IF SHE WAS HURTING ANYWHERE, SHE REPLIES "75" THREE TIMES. NO OTHER INFORMATION IS OBTAINABLE FROM PT PT WAS ADMITTED -07/30/18 PT WAS INITIALLY ADMITTED FOR 3 DAY HISTORY OF ABDOMINAL PAIN AND VOMITING AND WAS FOUND TO HAVE A BOWEL OBSTRUCTION--RESOLVED WITHOUT SURGERY. PT DEVELOPED COMPLICATIONS, INCLUDING ATRIAL FIBRILLATION AND PNEUMONIA NIECE ( DPOA ) AND [id number] ARE HERE AND GIVE ADDITIONAL INFORMATION: PT WITH DEMENTIA PT HAD BEEN LIVING ON HER OWN UNTIL THIS RECENT ADMIT SINCE DISMISSED, FAMILY MEMBERS HAVE BEEN STAYING WITH PT SINCE RECENT HOSPITALIZATION, PT'S CONFUSION HAS SIGNIFICANTLY WORSENED FAMILY REPORT THAT PT HAD NOT BEEN ON HOME O2 PRIOR TO DISMISSAL, BUT HAD HAD CPAP AT HOME, BUT HAS NOT BEEN USING IT FAMILY STATE THAT SHE WAS "FAIRLY COHERENT" THIS AM, PT HAD HOME HEALTH THIS AM AND THEY AMBULATED HER A LITTLE. HOME HEALTH NURSE WAS THERE THIS AFTERNOON. PT HAD SLEPT ALL AFTERNOON, AND THEN THIS EVENING "COULDN'T GET HER TO WAKE UP" AND HER BREATHING HAS GOTTEN MUCH MORE LABORED. NO REPORTED FEVER AT HOME NO INCREASED IN CHRONIC LEG SWELLING. LEFT LEG IS ALWAYS MORE SWOLLEN THAN RIGHT --AND ALWAYS HAS SOME REDNESS AND SCALING TO LEFT LOWER LEG, NO DIFFERENT THAN NORMAL PCP: FT. ALISIA BUSTOS--HAS AN APPOINTMENT TOMORROW FOR FOLLOW UP OPERATIONS ENGINEER: DR. ANDERSON Allergies and Home Medications Allergies Coded Allergies: Penicillins (Verified Allergy, Unknown, 07/19/18) celecoxib (Verified Allergy, Unknown, 07/19/18) hydrochlorothiazide (Verified Allergy, Unknown, 07/19/18) latex (Verified Allergy, Unknown, 07/19/18) rofecoxib (Verified Allergy, Unknown, 07/19/18) spironolactone (Verified Allergy, Unknown, 07/19/18) valdecoxib (Verified Allergy, Unknown, 07/19/18) Home Medications Apixaban 2.5 Mg Tablet, 2.5 MG PO BID Prescribed by: IRINA LUX on 07/30/18 1043 Aspirin 81 Mg Tablet.dr, 81 MG PO DAILY, (Reported) Furosemide 40 Mg Tablet, 40 MG PO DAILY, (Reported) Gabapentin 300 Mg Capsule, 600 MG PO DAILY, (Reported) TAKES 2 (300MG) CAPSULES Metoprolol Succinate 25 Mg Tab.er.24h, 25 MG PO DAILY, (Reported) Omeprazole 20 Mg Capsule.dr, 20 MG PO DAILY, (Reported) Potassium Chloride 10 Meq Tablet.er, 20 MEQ PO DAILY, (Reported) TAKES 2 (10MEQ) TABLETS Patient Home Medication List Home Medication List Reviewed: Yes Review of Systems Review of Systems Constitutional: other (UNABLE TO OBTAIN FROM PT) Respiratory: see HPI Psychiatric/Neurological: See HPI Past [id number] Hx Patient Social History Alcohol Use: Denies Use Recreational Drug Use: No Smoking Status: Never a Smoker 2nd Hand Smoke Exposure: Yes ( SMOKED CIGARS) Recent Foreign Travel: No Contact w/Someone Who Travel: No Immunizations Up To Date Date of Pneumonia Vaccine: Mar 06, 2018 Date of Influenza Vaccine: Jun 05, 2018 Seasonal Allergies Seasonal Allergies: Yes Past Medical History Surgeries: Yes (LEFT KNEE REPLACEMENT; HYST--UNKNOWN IF PT HAD BSO) Eye Surgery, Gallbladder, Hysterectomy, Joint Replacement, Orthopedic Respiratory: Yes Sleep Apnea Currently Using CPAP: Yes (HAS CPAP MACHINE, BUT FAMILY REPORTS THAT PT DOES NOT USE IT) Cardiac: Yes (AORTIC STENOSIS; "MYOCARDIAL STRAIN" PER FAMILY; ATRIAL FIB DX ) Atrial Fibrillation, Chronic Edema/Swelling, Heart Murmur, Hypertension, Valvular Heart Disease Neurological: Yes Dementia Genitourinary: Yes Bladder Infection Gastrointestinal: Yes Gastroesophageal Reflux, Chronic Diarrhea Musculoskeletal: Yes (LEFT ANKLE DEFORMITY; LEFT KNEE REPLACEMENT) Arthritis Endocrine: No HEENT: Yes Cataract Cancer: No Psychosocial: Yes (PARANOIA) Anxiety Integumentary: Yes (CHRONIC SKIN CHANGES LEFT LOWER LEG. ) Recent Skin Changes Blood Disorders: No Family Medical History Heart Disease, Cancer, CAD Under 55 Years Old, CAD Over 55 Years Old, Hypertension Physical Exam Vital Signs - First Documented 08/02/18 17:52 Temp 98.0 Pulse 66 Resp 25 Pulse Ox 96 O2 Delivery Nasal Cannula O2 Flow Rate 2.00 Capillary Refill : Height: 5'6.00" Weight: 162lbs. 4.0oz. 73.731572mn; 26.5 BMI Method: General Appearance: moderate distress (PT LETHARGIC, BUT AWAKE AND TALKING, PT WITH MODERATE DYSPNEA AND ABDOMINAL RETRACTIONS. ), obese, other (SPEECH SOMEWHAT THICK-TONGUED, ORAL MUCOSA VERY DRY. ) HEENT: PERRL/EOMI, other Respiratory: respiratory distress, decreased breath sounds (MINIMAL AERATION IN ALL LUNG REDMOND), accessory muscle use Cardiovascular: systolic murmur (4-5/6 ), irregularly irregular Gastrointestinal: non tender, soft Extremities: pedal edema (2+ ON RIGHT, 3+ ON LEFT. ), other (CHRONIC VENOUS STASIS CHANGES / ERYTHEMA AND OLD SCALING OF LEFT LOWER LEG--STOPS AT ANKLE. ) Neurologic/Psychiatric: no motor/sensory deficits (GROSSLY INTACT), other ( LETHARGIC. CONFUSED TO TIME, PLACE, SITUATION, POOR MEMORY. ORIENTED ONLY TO PERSON. ) Skin: normal color, warm/dry, other ( ABOVE) Focused Exam Lactate Level 08/02/18 17:56: Lactic Acid Level 0.72 Lactic Acid Level Laboratory Tests Test 08/02/18 17:56 Lactic Acid Level 0.72 MMOL/L (0.50-2.00) Progress/Results/Core Measures Suspected Sepsis SIRS Temperature: Pulse: Respiratory Rate: Laboratory Tests 08/02/18 17:56: White Blood Count 8.9 Blood Pressure / Mean: 08/02/18 17:56: Lactic Acid Level 0.72 Laboratory Tests 08/02/18 17:56: Creatinine 0.99, INR Comment 1.2, Platelet Count 500H, Total Bilirubin 0.6 Results/Orders Lab Results Laboratory Tests Test 08/02/18 17:56 08/02/18 18:08 Range/Units White Blood Count 8.9 4.3-11.0 10^3/uL Red Blood Count 3.44 L 4.35-5.85 10^6/uL Hemoglobin 10.4 L 11.5-16.0 G/DL Hematocrit 34 L 35-52 % Mean Corpuscular Volume 99 80-99 FL Mean Corpuscular Hemoglobin 30 25-34 PG Mean Corpuscular Hemoglobin Concent 31 L 32-36 G/DL Red Cell Distribution Width 14.3 10.0-14.5 % Platelet Count 500 H 130-400 10^3/uL Mean Platelet Volume 9.3 7.4-10.4 FL Neutrophils (%) (Auto) 73 42-75 % Lymphocytes (%) (Auto) 13 12-44 % Monocytes (%) (Auto) 11 0-12 % Eosinophils (%) (Auto) 3 0-10 % Basophils (%) (Auto) 0 0-10 % Neutrophils # (Auto) 6.5 1.8-7.8 X 10^3 Lymphocytes # (Auto) 1.2 1.0-4.0 X 10^3 Monocytes # (Auto) 0.9 0.0-1.0 X 10^3 Eosinophils # (Auto) 0.3 0.0-0.3 10^3/uL Basophils # (Auto) 0.0 0.0-0.1 10^3/uL Prothrombin Time 15.1 H 12.2-14.7 SEC INR Comment 1.2 0.8-1.4 Activated Partial Thromboplast Time 34 24-35 SEC Sodium Level 138 135-145 MMOL/L Potassium Level 4.8 3.6-5.0 MMOL/L Chloride Level 99 98-107 MMOL/L Carbon Dioxide Level 31 21-32 MMOL/L Anion Gap 8 5-14 MMOL/L Blood Urea Nitrogen 19 H 7-18 MG/DL Creatinine 0.99 0.60-1.30 MG/DL Estimat Glomerular Filtration Rate 53 BUN/Creatinine Ratio 19 Glucose Level 160 H 70-105 MG/DL Lactic Acid Level 0.72 0.50-2.00 MMOL/L Calcium Level 8.4 L 8.5-10.1 MG/DL Corrected Calcium 9.3 8.5-10.1 MG/DL Total Bilirubin 0.6 0.1-1.0 MG/DL Aspartate Amino Transf (AST/SGOT) 32 5-34 U/L Alanine Aminotransferase (ALT/SGPT) 35 0-55 U/L Alkaline Phosphatase 86 40-136 U/L Troponin I 0.031 <0.028 NG/ML B-Type Natriuretic Peptide 575.5 H <100.0 PG/ML Total Protein 5.9 L 6.4-8.2 GM/DL Albumin 2.9 L 3.2-4.5 GM/DL Urine Color YELLOW Urine Clarity SLIGHTLY CLOUDY Urine pH 5 5-9 Urine Specific [place] 1.010 L 1.016-1.022 Urine Protein 1+ H NEGATIVE Urine Glucose (UA) NEGATIVE NEGATIVE Urine Ketones NEGATIVE NEGATIVE Urine Nitrite NEGATIVE NEGATIVE Urine Bilirubin NEGATIVE NEGATIVE Urine Urobilinogen NORMAL NORMAL MG/DL Urine Leukocyte Esterase NEGATIVE NEGATIVE Urine RBC (Auto) 4+ H NEGATIVE Urine RBC RARE /HPF Urine WBC NONE /HPF Urine Squamous Epithelial Cells NONE /HPF Urine Crystals NONE /LPF Urine Amorphous Sediment FEW SHLOMO URATES H /LPF Urine Bacteria NEGATIVE /HPF Urine Casts PRESENT /LPF Urine Hyaline Casts 10-25 H /LPF Urine Mucus NEGATIVE /LPF Urine Culture Indicated NO Micro Results Microbiology 08/02/18 Influenza Types A,B Antigen ([facility]) - Final, Complete My Orders Orders - FIDE OTTO DO Cbc With Automated Diff (08/02/18 17:59) Comprehensive Metabolic Panel (08/02/18 17:59) Blood Culture (08/02/18 17:59) Sputum Culture (08/02/18 17:59) Urinalysis (08/02/18 17:59) Urine Culture (08/02/18 17:59) Protime With Inr (08/02/18 17:59) Partial Thromboplastin Time (08/02/18 17:59) Chest 1 View, Ap/Pa Only (08/02/18 17:59) Saline Lock/Iv-Start (08/02/18 17:59) Saline Lock/Iv-Start (08/02/18 17:59) Ekg Tracing (08/02/18 17:59) Troponin I (08/02/18 17:59) O2 (08/02/18 17:59) Remove Rings In Anticipation O (08/02/18 17:59) Lactic Acid Analyzer (08/02/18 17:59) Influenza A And B Antigens (08/02/18 17:59) Lactated Ringers (Lr 1000 Ml Iv Solution (08/02/18 17:59) Cefepime Injection (Maxipime Injection) (08/02/18 18:00) Albuterol/Ipra Inhalation Soln (Duoneb I (08/02/18 18:00) Dexamethasone Injection (Decadron Inject (08/02/18 18:00) Rt Request For Service (08/02/18 17:59) Svn Small Volume Nebulizer (08/02/18 17:59) Albuterol Pre-Mix Nebs (Rt) (Proventil (08/02/18 18:23) Methylprednisolone Sod Succ (Solu-Medrol (08/02/18 18:30) Furosemide Injection (Lasix Injection) (08/02/18 19:00) BNP (08/02/18 18:52) Medications Given in ED Vital Signs/I&O 08/02/18 08/02/18 08/02/18 17:52 18:38 19:00 Temp 98.0 Pulse 66 Resp 25 B/P (MAP) Pulse Ox 96 95 O2 Delivery Nasal Cannula Nasal Cannula Room Air O2 Flow Rate 2.00 2.00 08/03/18 00:00 Intake Total 550 ml Balance 550 ml Capillary Refill : Progress Note : Progress Note GIVEN HOUR LONG NEB TREATMENT. INCREASED AERATION, AND BREATHING IS LESS LABORED , BUT STILL HAVING SOME MILD ABDOMINAL RETRACTIONS, AND RESIDUAL WHEEZING. O2 SATS REMAINED IN MID TO UPPER 90'S. BP IN 90'S-LOW 100'S SYSTOLIC, HEART RATE REMAINED IN 60' 2030-JUST PRIOR TO PT BEING TRANSFERRED TO FLOOR, PT IS NOTED TO HAVE A DECREASE IN MENTATION--VERY SEDATE AND ROUSES TO STERNAL RUB. BP 85 SYSTOLIC, O2 SATS 98%--CALLED RT, THEY WILL DO ABG'S SOON PT ARRIVES ON THE FLOOR AND PLACE PT ON BIPAP SOON SHE ARRIVES. DISCUSSED WITH FAMILY AND CONFIRMED THAT PT IS DNR/DNI ECG Initial ECG Impression Date: Aug 02, 2018 Initial ECG Impression Time: 18:15 Initial ECG Rate: 65 Initial ECG Rhythm: A Fib/Flutter (RBBB, INFERIOR Q-WAVES) Initial ECG Comparisson: No Previous ECG Available (UNABLE TO LOCATE ANY PREVIOUS EKG) Diagnostic Imaging Comments CXR--PERSISTENT OPACITY IN LEFT BASE, CONCERNING FOR PNEUMONIA, PERSISTENT RIGHT PLEURAL EFFUSION. --PER RADIOLOGIST REPORT. Reviewed: Reviewed by Me Departure Communication (Admissions) 1899--DISCUSSED WITH DR. WAITE, HOSPITALIST, ACCEPTS PT FOR ADMIT. Impression Primary Impression: Respiratory distress Additional Impressions: Pneumonia CHF (congestive heart failure) Pleural effusion on right Atrial fibrillation Hypotension Dementia Aortic stenosis CO2 narcosis Disposition: ADMITTED INPATIENT Condition: Stable Admissions Decision to Admit Reason: Admit from ER (General) Decision to Admit/Date: Aug 02, 2018 Time/Decision to Admit Time: 19:00 Departure-Patient Inst. Referrals: ISABEL HICKS MD (PCP/Family) Primary Care Physician FIDE OTTO DO Aug 02, 2018 18:11
[2018-08-02 18:17] LABS: BASOPHILS % (AUTO) 0 % (0-10); EOSINOPHILS # (AUTO) 0.3 10^3/uL (0.0-0.3); EOSINOPHILS % (AUTO) 3 % (0-10); HEMATOCRIT 34 % (35-52); HEMOGLOBIN 10.4 G/DL (11.5-16.0); LYMPHOCYTES # (AUTO) 1.2 X 10^3 (1.0-4.0); LYMPHOCYTES % (AUTO) 13 % (12-44); MEAN CORPUSCULAR HEMOGLOBIN 30 PG (25-34); MEAN CORPUSCULAR HGB CONC 31 G/DL (32-36); MEAN CORPUSCULAR VOLUME 99 FL (80-99); MEAN PLATELET VOLUME 9.3 FL (7.4-10.4); MONOCYTES # (AUTO) 0.9 X 10^3 (0.0-1.0); MONOCYTES % (AUTO) 11 % (0-12); NEUTROPHILS # (AUTO) 6.5 X 10^3 (1.8-7.8); NEUTROPHILS % (AUTO) 73 % (42-75); PLATELET COUNT 500 10^3/uL (130-400); RED CELL DISTRIBUTION WIDTH 14.3 % (10.0-14.5); WHITE BLOOD COUNT 8.9 10^3/uL (4.3-11.0)
[2018-08-02 18:20] LABS: BILIRUBIN,URINE NEGATIVE (NEGATIVE); CLARITY,URINE SLIGHTLY CLOUDY; COLOR,URINE YELLOW; GLUCOSE, URINE (UA) NEGATIVE (NEGATIVE); KETONES,URINE NEGATIVE (NEGATIVE); LEUKOCYTE ESTERASE ,URINE NEGATIVE (NEGATIVE); NITRITE,URINE NEGATIVE (NEGATIVE); PH,URINE 5 (5-9); PROTEIN,URINE 1+ (NEGATIVE); UROBILINOGEN,URINE NORMAL (NORMAL)
[2018-08-02] MEDS ORDERED: RT-ALBUTEROL SULF 2.5 MG/3 ML PRE-MIX VIAL ONE (18:23)
[2018-08-02 18:26] LABS: BACTERIA,URINE NEGATIVE /HPF; RBC,URINE RARE /HPF
[2018-08-02 18:27] LABS: AMORPHOUS SEDIMENT,UR FEW AMOR URATES /LPF
[2018-08-02] MEDS ORDERED: methylPREDNISolone 125 MG (Solu-MEDROL) VIAL IVP ONE (18:30)
[2018-08-02 18:31] LABS: INR 1.2 (0.8-1.4); PROTHROMBIN TIME PATIENT 15.1 SEC (12.2-14.7)
[2018-08-02 18:35] LABS: ALBUMIN 2.9 GM/DL (3.2-4.5); BILIRUBIN,TOTAL 0.6 MG/DL (0.1-1.0); CALCIUM 8.4 MG/DL (8.5-10.1); CREATININE SERUM 0.99 MG/DL (0.60-1.30); POTASSIUM 4.8 MMOL/L (3.6-5.0); TOTAL PROTEIN 5.9 GM/DL (6.4-8.2)
--- NOTE | 2018-08-02 18:47 | Diagnostic Imaging Report ---
INDICATION: Shortness of air. Increased confusion. COMPARISON: 07/26/2018. FINDINGS: Single frontal radiographic view of the chest was obtained and again demonstrates moderate cardiomegaly and pulmonary vascular congestion. There is improved aeration of both lung bases, left greater than right. There is probable residual moderate effusion on the right and possible small effusion on the left. Dense consolidation is also noted within the left lung base concerning for superimposed pneumonia. No pneumothorax is seen on either side. Bony structures show no gross acute abnormalities. IMPRESSION: 1. Improved aeration of the left base, but with persistent dense alveolar opacity concerning for pneumonia. Continued follow-up is recommended. 2. Probable residual moderate right effusion. 3. Persistent moderate cardiomegaly and pulmonary vascular congestion. Dictated by: Dictated on workstation # [id number]
[2018-08-02] MEDS ORDERED: FUROSEMIDE 40 MG/4 ML INJ (LASIX) IVP ONE (19:00)
--- NOTE | 2018-08-02 19:00 | NUR ---
ASSUMED PRIMARY NURSE ROLE
--- OUTSIDE RECORDS SUMMARY | 2018-08-02 19:33 | XMS REPORT | Continuity of Care Document ---
Author Author [facility] Organization [facility] Address Unknown Phone Unavailable Allergies Active Description Code Type Severity Reaction Onset Reported/Identified Relationship to Patient Clinical Status Yes celecoxib [id number] Drug Allergy Unknown N/A 07/19/2018 Yes hydrochlorothiazide [id number] Drug Allergy Unknown N/A 07/19/2018 Yes latex [id number] Drug Allergy Unknown N/A 07/19/2018 Yes Penicillins [id number] Drug Allergy Unknown N/A 07/19/2018 Yes rofecoxib [id number] Drug Allergy Unknown N/A 07/19/2018 Yes spironolactone [id number] Drug Allergy Unknown N/A 07/19/2018 Yes valdecoxib [id number] Drug Allergy Unknown N/A 07/19/2018 Medications There [...] ERICKA NATARAJAN MD Ot F02.80 DEMENTIA IN [facility] DISEASES CLASSD ELSWHR W 07/23/2018 ERICKA [...] NATARAJAN MD Ot Z88.8 ALLERGY STATUS TO [facility] DRUG/MEDS/BIOL SUB 07/23/2018 REICKA NATARAJAN MD Ot D64.9 ANEMIA, UNSPECIFIED 07/23/2018 [...] Z88.4 ALLERGY STATUS TO ANESTHETIC AGENT STATU 07/30/2018 CHARLIE SHANKS MD, Ot E78.5 HYPERLIPIDEMIA, UNSPECIFIED 07/30/2018 CHARLIE SHANKS MD, Ot E87.0 HYPEROSMOLALITY AND HYPERNATREMIA 07/30/2018 CHARLIE SHANKS MD, Ot E87.6 HYPOKALEMIA 07/30/2018 CHARLIE SHANKS MD, Ot F02.80 DEMENTIA IN OTH DISEASES CLASSD ELSWHR W 07/30/2018 CHARLIE SHANKS MD, Ot F41.9 ANXIETY DISORDER, UNSPECIFIED 07/30/2018 CHARLIE SHANKS MD, Ot G30.9 ALZHEIMER'S DISEASE, UNSPECIFIED 07/30/2018 CHARLIE SHANKS MD, Ot G47.33 OBSTRUCTIVE SLEEP APNEA (ADULT) (PEDIATR 07/30/2018 CHARLIE SHANKS MD, Ot G62.9 POLYNEUROPATHY, UNSPECIFIED 07/30/2018 CHARLIE SHANKS MD Ot I13.0 HYP HRT CHR KDNY DIS W HRT FAIL AND ST 07/30/2018 CHARLIE SHNAKS MD, Ot 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 07/30/2018 CHARLIE SHANKS MD Ot I35.0 NONRHEUMATIC AORTIC (VALVE) STENOSIS 07/30/2018 CHARLIE SHANKS MD Ot I48.0 PAROXYSMAL ATRIAL FIBRILLATION 07/30/2018 CHARLIE SHANKS MD Ot I48.92 UNSPECIFIED ATRIAL FLUTTER 07/30/2018 CHARLIE SHANKS MD Ot I50.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 07/30/2018 CHARLIE SHANKS MD Ot 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 07/30/2018 CHARLIE SHANKS MD Ot I73.9 PERIPHERAL VASCULAR DISEASE, UNSPECIFIED 07/30/2018 CHARLIE SHANKS MD Ot I89.0 LYMPHEDEMA, NOT ELSEWHERE CLASSIFIED 07/30/2018 CHARLIE SHANKS MD, Ot J18.1 LOBAR PNEUMONIA, UNSPECIFIED ORGANISM 07/30/2018 CHARLIE SHANKS MD, Ot J44.9 CHRONIC OBSTRUCTIVE PULMONARY DISEASE, U 07/30/2018 CHARLIE SHANKS MD, Ot J90 PLEURAL EFFUSION, NOT ELSEWHERE CLASSIFI 07/30/2018 CHARLIE SHANKS MD, Ot J98.11 ATELECTASIS 07/30/2018 CHARLIE SHANKS MD, Ot K56.600 PARTIAL INTESTINAL OBSTRUCTION, UNSPECIF 07/30/2018 CHARLIE SHANKS MD, Ot L03.116 CELLULITIS OF LEFT LOWER LIMB 07/30/2018 CHARLIE SHANKS MD, Ot 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 07/30/2018 CHARLIE SHANKS MD, Ot N17.9 ACUTE KIDNEY FAILURE, UNSPECIFIED 07/30/2018 CHARLIE SHANKS MD, Ot N18.3 CHRONIC KIDNEY DISEASE, STAGE 3 (MODERAT 07/30/2018 CHARLIE SHANKS MD, Ot R19.7 DIARRHEA, UNSPECIFIED 07/30/2018 CHARLIE SHANKS MD, Ot R31.9 HEMATURIA, UNSPECIFIED 07/30/2018 CHARLIE SHANKS MD, Ot Z51.5 ENCOUNTER FOR PALLIATIVE CARE 07/30/2018 CHARLIE SHANKS MD, Ot Z66 DO NOT RESUSCITATE Procedures Code Description Performed By Performed On [id number] DRAINAGE OF STOMACH WITH DRAINAGE DEVICE 07/23/2018 Results Test Result Range Methicillin resistant Staphylococcus [...] - 11:30 MRSA SCREEN RESULT MRSA ISOLATED NR Complete blood count (CBC) with automated white [...] g/dL 3.2-4.5 CALCIUM CORRECTED 9.3 mg/dL 8.5-10.1 Complete blood count (CBC) with automated white blood cell (WBC) differential - 08/02/18 17:56 Blood leukocytes automated count (number/volume) 8.9 10*3/uL 4.3-11.0 Blood erythrocytes automated count (number/volume) 3.44 10*6/uL 4.35-5.85 Venous blood hemoglobin measurement (mass/volume) 10.4 g/dL 11.5-16.0 Blood hematocrit (volume fraction) 34 % 35-52 Automated erythrocyte mean corpuscular volume 99 [foz_us] 80-99 Automated erythrocyte mean corpuscular hemoglobin (mass per erythrocyte) 30 pg 25-34 Automated erythrocyte mean corpuscular hemoglobin concentration measurement ( mass/volume) 31 g/dL 32-36 Automated erythrocyte distribution width ratio 14.3 % 10.0-14.5 Automated blood platelet count (count/volume) 500 10*3/uL 130-400 Automated blood platelet mean volume measurement 9.3 [foz_us] 7.4-10.4 Automated blood neutrophils/100 leukocytes 73 % 42-75 Automated blood lymphocytes/100 leukocytes 13 % 12-44 Blood monocytes/100 leukocytes 11 % 0-12 Automated blood eosinophils/100 leukocytes 3 % 0-10 Automated blood basophils/100 leukocytes 0 % 0-10 Blood neutrophils automated count (number/volume) 6.5 10*3 1.8-7.8 Blood lymphocytes automated count (number/volume) 1.2 10*3 1.0-4.0 Blood monocytes automated count (number/volume) 0.9 10*3 0.0-1.0 Automated eosinophil count 0.3 10*3/uL 0.0-0.3 Automated blood basophil count (count/volume) 0.0 10*3/uL 0.0-0.1 Blood lactic acid measurement (moles/volume) - 08/02/18 17:56 Blood lactic acid measurement (moles/volume) 0.72 mmol/L 0.50-2.00 PT panel in platelet poor plasma by coagulation assay - 08/02/18 17:56 Prothrombin time (PT) in platelet poor plasma by coagulation assay 15.1 s 12.2-14.7 INR in platelet poor plasma or blood by coagulation assay 1.2 0.8-1.4 Activated partial thromboplastin time (aPTT) in platelet poor plasma bycoagulation assay - 08/02/18 17:56 Activated partial thromboplastin time (aPTT) in platelet poor plasma bycoagulation assay 34 s 24-35 Comprehensive metabolic panel - 08/02/18 17:56 Serum or plasma sodium measurement (moles/volume) 138 mmol/L 135-145 Serum or plasma potassium measurement (moles/volume) 4.8 mmol/L 3.6-5.0 Serum or plasma chloride measurement (moles/volume) 99 mmol/L 98-107 Carbon dioxide 31 mmol/L 21-32 Serum or plasma anion gap determination (moles/volume) 8 mmol/L 5-14 Serum or plasma urea nitrogen measurement (mass/volume) 19 mg/dL 7-18 Serum or plasma creatinine measurement (mass/volume) 0.99 mg/dL 0.60-1.30 Serum or plasma urea nitrogen/creatinine mass ratio 19 NRG Serum or plasma creatinine measurement with calculation of estimated glomerular filtration rate 53 NRG Serum or plasma glucose measurement (mass/volume) 160 mg/dL 70-105 Serum or plasma calcium measurement (mass/volume) 8.4 mg/dL 8.5-10.1 Serum or plasma total bilirubin measurement (mass/volume) 0.6 mg/dL 0.1-1.0 Serum or plasma alkaline phosphatase measurement (enzymatic activity/volume) 86 U/L 40-136 Serum or plasma aspartate aminotransferase measurement (enzymatic activity/ volume) 32 U/L 5-34 Serum or plasma alanine aminotransferase measurement (enzymatic activity/volume ) 35 U/L 0-55 Serum or plasma protein measurement (mass/volume) 5.9 g/dL 6.4-8.2 Serum or plasma albumin measurement (mass/volume) 2.9 g/dL 3.2-4.5 CALCIUM CORRECTED 9.3 mg/dL 8.5-10.1 Serum or plasma troponin i.cardiac measurement (mass/volume) - 08/02/18 17:56 Serum or plasma troponin i.cardiac measurement (mass/volume) 0.031 ng/mL <0.028 Serum or plasma lithium measurement (moles/volume) - 08/02/18 17:56 BNP level 575.5 pg/mL <100.0 Influenza virus A and B antigen detection - 08/02/18 18:03 FLU RESULT NEGATIVE FOR INFLUENZA A AND B ANTIGENS BY IA NRG Complete urinalysis with reflex to culture - 08/02/18 18:08 Urine color determination YELLOW NRG Urine clarity determination SLIGHTLY CLOUDY NRG Urine pH measurement by test strip 5 5-9 Specific gravity of urine by test strip 1.010 1.016- 1.022 Urine protein assay by test strip, semi-quantitative 1+ NEGATIVE Urine glucose detection by automated test strip NEGATIVE NEGATIVE Erythrocytes detection in urine sediment by light microscopy 4+ NEGATIVE Urine ketones detection by automated test strip NEGATIVE NEGATIVE Urine nitrite detection by test strip NEGATIVE NEGATIVE Urine total bilirubin detection by test strip NEGATIVE NEGATIVE Urine urobilinogen measurement by automated test strip (mass/volume) NORMAL NORMAL Urine leukocyte esterase detection by dipstick NEGATIVE NEGATIVE Automated urine sediment erythrocyte count by microscopy (number/high power field) RARE NRG Automated urine sediment leukocyte count by microscopy (number/high power field ) NONE NRG Bacteria detection in urine sediment by light microscopy NEGATIVE NRG Squamous epithelial cells detection in urine sediment by light microscopy NONE NRG Crystals detection in urine sediment by light microscopy NONE NRG Casts detection in urine sediment by light microscopy PRESENT NRG Mucus detection in urine sediment by light microscopy NEGATIVE NRG Complete urinalysis with reflex to culture NO NRG Amorphous sediment detection in urine sediment by light microscopy FEW SHLOMO URATES NRG Hyaline casts detection in urine sediment by light microscopy 10-25 NRG Encounters ACCT No. Visit Date/Time Discharge Status Pt. Type Provider Facility Loc./Unit Complaint [id number] 07/23/2018 12:47:00 07/30/2018 13:02:00 DIS Outpatient RIMMA TAN, CHARLIE Hahn [facility] 4TH SWB, SBO [id number] 07/19/2018 04:31:00 07/23/2018 12:40:00 DIS Outpatient ERICKA NATARAJAN MD [facility] 4TH DUEODEUM OBSTRUCTION [id number] 12/19/2014 10:58:00 12/19/2014 23:59:59 CLS Outpatient JUSTIN TAN, KRISTY Koo [facility] CARD [id number] 10/24/2013 09:41:00 10/24/2013 23:59:59 CLS Outpatient [id number] 12/09/2012 10:46:00 12/09/2012 23:59:59 CLS Outpatient [id number] 08/02/2018 18:23:00 Document Registration
[2018-08-02] MEDS ORDERED: NS IV 500 ML 500 ML ONE (20:03)
[2018-08-02] MEDS ORDERED: NS (IVPB) 250 ML IV ONE (20:05)
[2018-08-02 20:50] VITALS: BP 90/56
--- NOTE | 2018-08-02 21:06 | NUR ---
New order rec from Dr. Chavez to change vital signs from q 1 hr to q 4 hr. Also informed of lower bp on admit of 90/56 with hr at 71. No new orders rec.
[2018-08-02 21:15] LABS: ABG BASE EXCESS 6.2 MMOL/L (-2.5-2.5); ABG OXYGEN SATURATION 94 % (94-100); ABG PO2 68 MMHG (79-93); ABG TCO2 35.1 MMOL/L (21.0-31.0)
[2018-08-02 21:16] LABS: ALLENS TEST POSITIVE; INSPIRED O2 4; PATIENT TEMP 97.5; VENTILATOR NO
[2018-08-02 21:18] LABS: ABG PCO2 72 MMHG (35-45); ABG PH 7.28 (7.37-7.43)
[2018-08-02] MEDS ORDERED: ACETAMINOPHEN 500 MG TAB (TYLENOL) PO PRN (21:45)
[2018-08-02] MEDS ORDERED: GENTAMICIN 100 MG/NS 100 ML IVPB IV ONE ×2 (21:45)
--- NOTE | 2018-08-02 21:45 | NUR ---
Dr. Chavez notified of critical Ph at 7.28 and PC02 at 72. No new orders rec.
[2018-08-02 22:05] VITALS: BP 72/43
[2018-08-02] MEDS: AZITHROMYCIN INJECTION 500 MG in NS (IVPB) 250 ML IV SCH (22:12)
[2018-08-02] MEDS: NS IV 1000 ML 1,000 ML IV SCH (22:12)
--- NOTE | 2018-08-02 22:21 | NUR ---
Dr. Chavez notified of unable to obtain Gentamycin per admission orders. New order rec to dc this med. also informed of low bp of 72/43 with hr at 66. No additional orders rec.
--- NOTE | 2018-08-02 22:50 | NUR ---
ABDIRAHMAN SALINAS I admitted to room 429-1, with an admitting diagnosis of Pneumonia, chf, right pleural effusion, afib, on 08/02/18 from ER via BED, accompanied by er staff and family members. ABDIRAHMAN DOWD I introduced to surroundings, call light, bed controls, phone, TV, temperature control, lights, meal times, smoking policy, visitor policy, side rail policy, bathrooms and showers. Patient Rights given to patient in the handbook. ABDIRAHMAN SALINAS I verbalizes understanding that [facility] is not responsible for the loss or damage to any personal effects or valuables that are kept in the patients possession during their hospitalization. Addendum: 08/03/18 at 0136 by KAITLYNN LUBIN RN alanna slade - pt arrived at 0 on 08/02/18
[2018-08-02] MEDS: RT-ALBUTEROL/IPRATROPIUM 3 ML (DUONEB) VIAL INH SCH (23:48)
[2018-08-03] MEDS ORDERED: RT-ALBUTEROL/IPRATROPIUM 3 ML (DUONEB) VIAL INH PRN
[2018-08-03 00:05] VITALS: BP 66/39
[2018-08-03] MEDS: methylPREDNISolone 125 MG (Solu-MEDROL) VIAL IVP SCH ×2 (00:43→05:54)
[2018-08-03] MEDS: RT-ALBUTEROL/IPRATROPIUM 3 ML (DUONEB) VIAL INH SCH ×6 (02:50→22:01)
[2018-08-03 04:00] VITALS: BP 101/54
[2018-08-03] MEDS ORDERED: FUROSEMIDE 40 MG/4 ML INJ (LASIX) IV SCH (06:00)
[2018-08-03] MEDS ORDERED: CEFEPIME INJECTION 2,000 MG in NS (IVPB) 50 ML IV SCH (06:00)
[2018-08-03 06:18] LABS: BASOPHILS % (AUTO) 0 % (0-10); EOSINOPHILS % (AUTO) 0 % (0-10); HEMATOCRIT 30 % (35-52); LYMPHOCYTES # (AUTO) 0.4 X 10^3 (1.0-4.0); LYMPHOCYTES % (AUTO) 6 % (12-44); MEAN CORPUSCULAR HEMOGLOBIN 29 PG (25-34); MEAN CORPUSCULAR HGB CONC 30 G/DL (32-36); MEAN CORPUSCULAR VOLUME 98 FL (80-99); MEAN PLATELET VOLUME 9.5 FL (7.4-10.4); MONOCYTES # (AUTO) 0.1 X 10^3 (0.0-1.0); MONOCYTES % (AUTO) 1 % (0-12); NEUTROPHILS # (AUTO) 6.8 X 10^3 (1.8-7.8); NEUTROPHILS % (AUTO) 94 % (42-75); PLATELET COUNT 392 10^3/uL (130-400); RED CELL DISTRIBUTION WIDTH 13.9 % (10.0-14.5); WHITE BLOOD COUNT 7.2 10^3/uL (4.3-11.0)
[2018-08-03 06:38] LABS: ALBUMIN 2.5 GM/DL (3.2-4.5); BILIRUBIN,TOTAL 0.6 MG/DL (0.1-1.0); CALCIUM 8.3 MG/DL (8.5-10.1); CREATININE SERUM 0.99 MG/DL (0.60-1.30); POTASSIUM 4.4 MMOL/L (3.6-5.0); TOTAL PROTEIN 5.1 GM/DL (6.4-8.2)
[2018-08-03 08:00] VITALS: BP 92/50
--- NOTE | 2018-08-03 08:07 | Consultation-Cardiology ---
HPI-Cardiology Cardiology Consultation Date of Consultation 08/03/18 Date of Admission Time Seen by Provider: 08:01 Indication: atrial fibrillation, hypotension HPI 88-year-old lady with recent hospitalization for small bowel obstruction, pneumonia and pleural effusion. Was discharged home recently, noted overnight that she became more lethargic and unresponsive. She was borderline hypotensive yesterday which became worse overnight. Brought by EMS to the hospital, was lethargic and unresponsive. Currently more awake, feeling better , using C Pap. She denied any chest pain, has been having some shortness of breath and cough. She was hypotensive overnight. Home Medications & Allergies Allergies: Coded Allergies: Penicillins (Verified Allergy, Unknown, 07/19/18) celecoxib (Verified Allergy, Unknown, 07/19/18) hydrochlorothiazide (Verified Allergy, Unknown, 07/19/18) latex (Verified Allergy, Unknown, 07/19/18) rofecoxib (Verified Allergy, Unknown, 07/19/18) spironolactone (Verified Allergy, Unknown, 07/19/18) valdecoxib (Verified Allergy, Unknown, 07/19/18) Home Medication List Reviewed: Yes [id number] Hx Patient Social History Marital Status: Employed/Student: retired Alcohol Use: Denies Use Recreational Drug Use: No Smoking Status: Never a Smoker 2nd Hand Smoke Exposure: Yes ( SMOKED CIGARS) Recent Foreign Travel: No Recent Infectious Disease Expo: No Recent Hopitalizations: Yes (discharged 07/30/18) Physical Abuse Screen: No Sexual Abuse: No Immunizations Up To Date Tetanus Booster (TDap): Unknown Date of Pneumonia Vaccine: Mar 06, 2018 Date of Influenza Vaccine: Jun 05, 2018 Past Medical History past medical history as described below Family Medical History Significant Family History: Heart Disease, Cancer, CAD Under 55 Years Old, CAD Over 55 Years Old, Hypertension Family History: Cardiovascular disease 19 FATHER 19 MOTHER FH: CAD (coronary artery disease) 19 FATHER 19 MOTHER FH: cancer 19 MOTHER Hypertension 19 FATHER 19 MOTHER Review of Systems Constitutional: see HPI, weakness, weight gain EENTM: see HPI, no symptoms reported Respiratory: see HPI, cough, dyspnea on exertion, orthopnea, phlegm, short of breath Cardiovascular: see HPI; No chest pain; edema; No Hx of Intervention, No palpitations, No syncope, No vascular heart diseas, No other Gastrointestinal: no symptoms reported, see HPI Genitourinary: no symptoms reported, see HPI Musculoskeletal: see HPI, joint pain, muscle weakness Skin: see HPI Psychiatric/Neurological: No Symptoms Reported, See HPI Reviewed Test Results Reviewed Test Results Lab Laboratory Tests Test 08/02/18 17:56 08/02/18 18:08 08/02/18 21:08 08/03/18 00:35 Range/Units White Blood Count 8.9 4.3-11.0 10^3/uL Red Blood Count 3.44 L 4.35-5.85 10^6/uL Hemoglobin 10.4 L 11.5-16.0 G/DL Hematocrit 34 L 35-52 % Mean Corpuscular Volume 99 80-99 FL Mean Corpuscular Hemoglobin 30 25-34 PG Mean Corpuscular Hemoglobin Concent 31 L 32-36 G/DL Red Cell Distribution Width 14.3 10.0-14.5 % Platelet Count 500 H 130-400 10^3/uL Mean Platelet Volume 9.3 7.4-10.4 FL Neutrophils (%) (Auto) 73 42-75 % Lymphocytes (%) (Auto) 13 12-44 % Monocytes (%) (Auto) 11 0-12 % Eosinophils (%) (Auto) 3 0-10 % Basophils (%) (Auto) 0 0-10 % Neutrophils # (Auto) 6.5 1.8-7.8 X 10^3 Lymphocytes # (Auto) 1.2 1.0-4.0 X 10^3 Monocytes # (Auto) 0.9 0.0-1.0 X 10^3 Eosinophils # (Auto) 0.3 0.0-0.3 10^3/uL Basophils # (Auto) 0.0 0.0-0.1 10^3/uL Prothrombin Time 15.1 H 12.2-14.7 SEC INR Comment 1.2 0.8-1.4 Activated Partial Thromboplast Time 34 24-35 SEC Sodium Level 138 135-145 MMOL/L Potassium Level 4.8 3.6-5.0 MMOL/L Chloride Level 99 98-107 MMOL/L Carbon Dioxide Level 31 21-32 MMOL/L Anion Gap 8 5-14 MMOL/L Blood Urea Nitrogen 19 H 7-18 MG/DL Creatinine 0.99 0.60-1.30 MG/DL Estimat Glomerular Filtration Rate 53 BUN/Creatinine Ratio 19 Glucose Level 160 H 70-105 MG/DL Lactic Acid Level 0.72 0.50-2.00 MMOL/L Calcium Level 8.4 L 8.5-10.1 MG/DL Corrected Calcium 9.3 8.5-10.1 MG/DL Total Bilirubin 0.6 0.1-1.0 MG/DL Aspartate Amino Transf (AST/SGOT) 32 5-34 U/L Alanine Aminotransferase (ALT/SGPT) 35 0-55 U/L Alkaline Phosphatase 86 40-136 U/L Troponin I 0.031 0.034 <0.028 NG/ML B-Type Natriuretic Peptide 575.5 H <100.0 PG/ML Total Protein 5.9 L 6.4-8.2 GM/DL Albumin 2.9 L 3.2-4.5 GM/DL Urine Color YELLOW Urine Clarity SLIGHTLY CLOUDY Urine pH 5 5-9 Urine Specific [place] 1.010 L 1.016-1.022 Urine Protein 1+ H NEGATIVE Urine Glucose (UA) NEGATIVE NEGATIVE Urine Ketones NEGATIVE NEGATIVE Urine Nitrite NEGATIVE NEGATIVE Urine Bilirubin NEGATIVE NEGATIVE Urine Urobilinogen NORMAL NORMAL MG/DL Urine Leukocyte Esterase NEGATIVE NEGATIVE Urine RBC (Auto) 4+ H NEGATIVE Urine RBC RARE /HPF Urine WBC NONE /HPF Urine Squamous Epithelial Cells NONE /HPF Urine Crystals NONE /LPF Urine Amorphous Sediment FEW SHLOMO URATES H /LPF Urine Bacteria NEGATIVE /HPF Urine Casts PRESENT /LPF Urine Hyaline Casts 10-25 H /LPF Urine Mucus NEGATIVE /LPF Urine Culture Indicated NO Blood Gas Puncture Site RT RAIAL Blood Gas Patient Temperature 97.5 Arterial Blood pH 7.28 *L 7.37-7.43 Arterial Blood Partial Pressure CO2 72 *H 35-45 MMHG Arterial Blood Partial Pressure O2 68 L 79-93 MMHG Arterial Blood HCO3 33 H 23-27 MMOL/L Arterial Blood Total CO2 35.1 H 21.0-31.0 MMOL/L Arterial Blood Oxygen Saturation 94 94-100 % Arterial Blood Base Excess 6.2 H -2.5-2.5 MMOL/L Steven Test POSITIVE Blood Gas Ventilator Setting NO Blood Gas Inspired Oxygen 4 Test 08/03/18 06:00 Range/Units White Blood Count 7.2 4.3-11.0 10^3/uL Red Blood Count 3.07 L 4.35-5.85 10^6/uL Hemoglobin 9.0 L 11.5-16.0 G/DL Hematocrit 30 L 35-52 % Mean Corpuscular Volume 98 80-99 FL Mean Corpuscular Hemoglobin 29 25-34 PG Mean Corpuscular Hemoglobin Concent 30 L 32-36 G/DL Red Cell Distribution Width 13.9 10.0-14.5 % Platelet Count 392 130-400 10^3/uL Mean Platelet Volume 9.5 7.4-10.4 FL Neutrophils (%) (Auto) 94 H 42-75 % Lymphocytes (%) (Auto) 6 L 12-44 % Monocytes (%) (Auto) 1 0-12 % Eosinophils (%) (Auto) 0 0-10 % Basophils (%) (Auto) 0 0-10 % Neutrophils # (Auto) 6.8 1.8-7.8 X 10^3 Lymphocytes # (Auto) 0.4 L 1.0-4.0 X 10^3 Monocytes # (Auto) 0.1 0.0-1.0 X 10^3 Eosinophils # (Auto) 0.0 0.0-0.3 10^3/uL Basophils # (Auto) 0.0 0.0-0.1 10^3/uL Sodium Level 137 135-145 MMOL/L Potassium Level 4.4 3.6-5.0 MMOL/L Chloride Level 101 98-107 MMOL/L Carbon Dioxide Level 28 21-32 MMOL/L Anion Gap 8 5-14 MMOL/L Blood Urea Nitrogen 20 H 7-18 MG/DL Creatinine 0.99 0.60-1.30 MG/DL Estimat Glomerular Filtration Rate 53 BUN/Creatinine Ratio 20 Glucose Level 182 H 70-105 MG/DL Calcium Level 8.3 L 8.5-10.1 MG/DL Corrected Calcium 9.5 8.5-10.1 MG/DL Total Bilirubin 0.6 0.1-1.0 MG/DL Aspartate Amino Transf (AST/SGOT) 21 5-34 U/L Alanine Aminotransferase (ALT/SGPT) 29 0-55 U/L Alkaline Phosphatase 77 40-136 U/L Total Protein 5.1 L 6.4-8.2 GM/DL Albumin 2.5 L 3.2-4.5 GM/DL Procalcitonin 0.24 H <0.10 NG/ML Physical Exam Vital Signs Vital Signs - First Documented 08/02/18 08/02/18 08/02/18 17:52 20:45 21:41 Temp 98.0 Pulse 66 Resp 25 B/P (MAP) 124/56 (78) Pulse Ox 96 O2 Delivery Nasal Cannula O2 Flow Rate 2.00 FiO2 50 Capillary Refill : Less Than 3 Seconds Height, Weight, BMI Height: 5'5.00" Weight: 178lbs. 0.0oz. 80.513251pf; 29.6 BMI Method:Stated General Appearance: WD/WN, Moderate Distress Eyes: Bilateral Eye Normal Inspection, Bilateral Eye PERRL, Bilateral Eye EOMI HEENT: PERRL/EOMI, TMs Normal, Normal ENT Inspection, Pharynx Normal Neck: Full Range of Motion, Normal Inspection, Non Tender, Supple, Carotid Bruit Respiratory: Chest Non Tender, No Respiratory Distress, Crackles, Decreased Breath Sounds, Respiratory Distress Cardiovascular: No Gallop, Normal Peripheral Pulses, Systolic Murmur, Gallop/S3 , Irregularly Irregular Gastrointestinal: Normal Bowel Sounds, No Organomegaly, No Pulsatile Mass, Non Tender, Soft Back: Normal Inspection, No CVA Tenderness, No Vertebral Tenderness Extremity: Normal Capillary Refill, Normal Inspection, Normal Range of Motion, Non Tender, No Calf Tenderness, No Pedal Edema Neurologic/Psychiatric: Alert, Oriented x3, No Motor/Sensory Deficits, Normal Mood/Affect Skin: Normal Color, Warm/Dry Lymphatic: No Adenopathy A/P-Cardiology Admission Diagnosis Change in mental status Pneumonia Chronic atrial fibrillation Hypotension Assessment/Plan Change in mental status, hypoxemia and hypotension, improving at this time. Questionable pneumonia, started on antibiotic, workup by primary care team. Anemia, worsening today, continue to monitor H&H Hypotension, multifactorial, monitor H&H and fluid balance closely Chronic atrial fibrillation, rate is controlled. Continue to monitor [id number] score of 6, yearly risk of stroke without oral anticoagulation is 9.8 percent. Increased risk of bleeding especially with the worsening anemia, monitor closely, hold Eliquis for today Critical aortic valve stenosis, valve area is 0.6-0.7 cm with a gradient across the valve around 110 mmHg, conservative management due to her age and her multiple comorbid condition Chronic renal insufficiency. Continue to monitor renal function closely COPD/obstructive sleep apnea uses C Pap at home, currently on Cipro Pap History of congestive heart failure with chronic compensated left ventricular diastolic dysfunction, normal systolic function, continue to monitor Chronic pedal edema, maintained on diuretics, has cellulitis and ulceration on her leg has been managed for the past year by her primary care physician History of pulmonary hypertension with cor pulmonale, continue to monitor Hyperlipidemia, continue to monitor at this time Carotid stenosis, mild nonobstructive disease bilaterally, continue to monitor Peripheral neuropathy, maintained on Neurontin as an outpatient. Right bundle branch block. Chronic, no changes. Continue to monitor Peripheral vascular disease, no recent workup was done. Continue to monitor Degenerative joint disease, arthritic pain Anxiety, Alzheimer dementia, patient was able to stay at home with her family prior to this admission Clinical Quality Measures DVT/VTE Risk/Contraindication: Risk Factor Score Per Nursin RFS Level Per Nursing on Admit: 4+=Very High KRISTY ANDERSON MD Aug 03, 2018 08:07
--- NOTE | 2018-08-03 08:16 | Diagnostic Imaging Report ---
INDICATION: Cough. COMPARISON: 08/02/2018. FINDINGS: Stable small right pleural effusion. Left basilar heterogeneous opacities have improved but persist. No pneumothorax. Stable cardiomegaly. IMPRESSION: 1. Improved but persistent right basilar opacities likely due to resolving pneumonia. 2. Stable small right pleural effusion. Dictated by: Dictated on workstation # [id number]
[2018-08-03] MEDS ORDERED: FUROSEMIDE 40 MG/4 ML INJ (LASIX) IVP NR (09:15)
--- NOTE | 2018-08-03 09:19 | Pulmonary Consultation ---
TUTU LONG Libia STUDENT 08/03/18 0919: History of Present Illness History of Present Illness Date of Consultation 08/03/18 09:14 Time Seen by Provider: 09:14 Date of Admission 08/01/18 Reason for Visit: atrial fibrillation, hypotension History of Present Illness 88 y/o F presented to the ED in [place] via EMS for increased shortness of breath and decreased mentation. She was recently discharged from following a SOB that was complicated by PNA and new onset a. fib. Her family noted that since discharge, she has had increased confusion. Yesterday, she had worsened shortness of breath, which was followed by decreased mentation. When EMS arrived , they had to do a sternal rub to arouse her. She was sating in the 90s with hypotension. She received nebulizer treatment, which helped with her breathing. Allergies and Home Medications Allergies Coded Allergies: Penicillins (Verified Allergy, Unknown, 07/19/18) celecoxib (Verified Allergy, Unknown, 07/19/18) hydrochlorothiazide (Verified Allergy, Unknown, 07/19/18) latex (Verified Allergy, Unknown, 07/19/18) rofecoxib (Verified Allergy, Unknown, 07/19/18) spironolactone (Verified Allergy, Unknown, 07/19/18) valdecoxib (Verified Allergy, Unknown, 07/19/18) Home Medications Apixaban 2.5 Mg Tablet, 2.5 MG PO BID Prescribed by: IRINA LUX on 07/30/18 1043 Aspirin 81 Mg Tablet.dr, 81 MG PO DAILY, (Reported) Furosemide 40 Mg Tablet, 40 MG PO DAILY, (Reported) Gabapentin 300 Mg Capsule, 600 MG PO DAILY, (Reported) TAKES 2 (300MG) CAPSULES Metoprolol Succinate 25 Mg Tab.er.24h, 25 MG PO DAILY, (Reported) Omeprazole 20 Mg Capsule.dr, 20 MG PO DAILY, (Reported) Potassium Chloride 10 Meq Tablet.er, 20 MEQ PO DAILY, (Reported) TAKES 2 (10MEQ) TABLETS Past Elxovkg-Wnwnkf-Ytkcqh Hx Patient Social History Alcohol Use: Denies Use Recreational Drug Use: No Smoking Status: Never a Smoker 2nd Hand Smoke Exposure: Yes ( SMOKED CIGARS) Recent Foreign Travel: No Contact w/Someone Who Travel: No Recent Infectious Disease Expo: No Recent Hopitalizations: Yes (discharged 07/30/18) Immunizations Up To Date Tetanus Booster (TDap): Unknown Date of Pneumonia Vaccine: Mar 06, 2018 Date of Influenza Vaccine: Jun 05, 2018 Seasonal Allergies Seasonal Allergies: Yes Past Medical History Surgeries: Yes (LEFT KNEE REPLACEMENT; HYST--UNKNOWN IF PT HAD BSO) Eye Surgery, Gallbladder, Hysterectomy, Joint Replacement, Orthopedic Respiratory: Yes Sleep Apnea Currently Using CPAP: Yes (HAS CPAP MACHINE, BUT FAMILY REPORTS THAT PT DOES NOT USE IT) Cardiac: Yes (AORTIC STENOSIS; "MYOCARDIAL STRAIN" PER FAMILY; ATRIAL FIB DX ) Atrial Fibrillation, Chronic Edema/Swelling, Heart Murmur, Hypertension, Valvular Heart Disease Neurological: Yes Dementia Genitourinary: Yes Bladder Infection Gastrointestinal: Yes Gastroesophageal Reflux, Chronic Diarrhea Musculoskeletal: Yes (LEFT ANKLE DEFORMITY; LEFT KNEE REPLACEMENT) Arthritis Endocrine: No HEENT: Yes Cataract Cancer: No Psychosocial: Yes (PARANOIA) Anxiety Integumentary: Yes (CHRONIC SKIN CHANGES LEFT LOWER LEG. ) Recent Skin Changes Blood Disorders: No Family Medical History Cardiovascular disease 19 FATHER 19 MOTHER FH: CAD (coronary artery disease) 19 FATHER 19 MOTHER FH: cancer 19 MOTHER Hypertension 19 FATHER 19 MOTHER Heart Disease, Cancer, CAD Under 55 Years Old, CAD Over 55 Years Old, Hypertension Sepsis Event Evaluation Height, Weight, BMI Height: 5'5.00" Weight: 178lbs. 0.0oz. 80.103256ib; 29.6 BMI Method:Stated Exam Exam Vital Signs Date Time Temp Pulse Resp B/P (MAP) Pulse Ox O2 Delivery O2 Flow Rate FiO2 08/03/18 08:57 58 08/03/18 08:21 54 37 95 60.00 08/03/18 07:45 97.6 63 20 101/54 97 60.00 08/03/18 06:57 63 20 97 60.00 08/03/18 04:50 62 16 86 50.00 08/03/18 04:00 97.6 60 14 101/54 (70) 94 NIV Bilevel 08/03/18 02:51 72 20 92 50.00 08/03/18 01:00 66 08/03/18 00:05 97.3 63 14 66/39 (48) 96 NIV Bilevel 08/02/18 23:48 69 14 93 50.00 08/02/18 22:05 66 72/43 (53) 96 NIV Bilevel 08/02/18 21:41 65 96 50 08/02/18 21:40 60 08/02/18 21:20 65 14 96 50.00 08/02/18 20:50 97.5 71 22 90/56 (67) 91 NIV Bilevel 08/02/18 20:50 98.0 66 25 95 Nasal Cannula 2.00 2.00 08/02/18 20:50 NIV CPAP 08/02/18 20:45 98.0 66 25 124/56 (78) 95 Room Air 2.00 08/02/18 19:00 Room Air 08/02/18 18:38 95 Nasal Cannula 2.00 08/02/18 17:52 98.0 66 25 96 Nasal Cannula 2.00 I & O 08/03/18 07:00 Intake Total 1800 ml Output Total 500 ml Balance 1300 ml Height & Weight Height: 5'5.00" Weight: 178lbs. 0.0oz. 80.672706dt; 29.6 BMI Method:Stated General Appearance: WD/WN, Moderate Distress HEENT: PERRL/EOMI, TMs Normal, Normal ENT Inspection, Pharynx Normal Neck: Full Range of Motion, Normal Inspection, Non Tender, Supple, Carotid Bruit Respiratory: Chest Non Tender, No Respiratory Distress, Crackles, Decreased Breath Sounds, Respiratory Distress Cardiovascular: No Gallop, Normal Peripheral Pulses, Systolic Murmur, Gallop/S3 , Irregularly Irregular Capillary Refill: Less Than 3 Seconds Gastrointestinal: non tender, soft Extremity: Normal Capillary Refill, Normal Inspection, Normal Range of Motion, Non Tender, No Calf Tenderness, No Pedal Edema Neurologic/Psychiatric: Alert, Oriented x3, No Motor/Sensory Deficits, Normal Mood/Affect Skin: Normal Color, Warm/Dry Lymphatic: No Adenopathy Results Lab Laboratory Tests 08/02/18 17:56 08/03/18 06:00 Assessment/Plan Assessment/Plan Acute respiratory failure -On Bipap with flow of 60 -CXR showed continued opacity in the left lower lobe, moderate right pleural effusion, cardiomegaly and vascular congestion -Lasix -Solumedrol, duonebs Partially compensated respiratory acidosis with hypercapnia -Bipap -Monitor Metabolic encephalopathy/Altered mentation -May be secondary to hypercapnia -Monitor CHFAE -BNP elevated -Lasix -Cardiology consulted Anemia, stable -Protonix Acute on chronic renal failure (CKD stage III) Cellulitis LLE, improved -Chronic lymphedema per family Atrial flutter -Cardiology consulted Aortic stenosis -Cardiology consulted Dementia, chronic -CT head completed with some leukoaraiosis from prior visit HTN PAMELLA SANCHEZ DO 08/03/18 1009: History of Present Illness History of Present Illness Time Seen by Provider: 10:04 History of Present Illness 88yo with recent hospitalization presented as direct admit from [facility] ED via EMS secondary to worsening SOB and lethargy. Since last discharge pt has had increasing confusion and SOB. ABG shows acute respiratory failure. Pt is currently on BiPAP. Allergies and Home Medications Allergies Coded Allergies: Penicillins (Verified Allergy, Unknown, 07/19/18) celecoxib (Verified Allergy, Unknown, 07/19/18) hydrochlorothiazide (Verified Allergy, Unknown, 07/19/18) latex (Verified Allergy, Unknown, 07/19/18) rofecoxib (Verified Allergy, Unknown, 07/19/18) spironolactone (Verified Allergy, Unknown, 07/19/18) valdecoxib (Verified Allergy, Unknown, 07/19/18) Home Medications Apixaban 2.5 Mg Tablet, 2.5 MG PO BID Prescribed by: IRINA LUX on 07/30/18 1043 Aspirin 81 Mg Tablet.dr, 81 MG PO DAILY, (Reported) Furosemide 40 Mg Tablet, 40 MG PO DAILY, (Reported) Gabapentin 300 Mg Capsule, 600 MG PO DAILY, (Reported) TAKES 2 (300MG) CAPSULES Metoprolol Succinate 25 Mg Tab.er.24h, 25 MG PO DAILY, (Reported) Omeprazole 20 Mg Capsule.dr, 20 MG PO DAILY, (Reported) Potassium Chloride 10 Meq Tablet.er, 20 MEQ PO DAILY, (Reported) TAKES 2 (10MEQ) TABLETS Past Vkofbcd-Uowwht-Lluqxw Hx Family Medical History Cardiovascular disease 19 FATHER 19 MOTHER FH: CAD (coronary artery disease) 19 FATHER 19 MOTHER FH: cancer 19 MOTHER Hypertension 19 FATHER 19 MOTHER Assessment/Plan Assessment/Plan Acute respiratory failure -- No leukocytosis, No fever - Doubt active pneumonia -Land cultures pending -On Bipap with flow of 60 -CXR shows moderate R pleural effusion -Check BNP - 575 -Lasix 40mg IV X 1 -Solumedrol, duonebs Acute on chronic respiratory failure -BiPAP QHS and PRN Metabolic encephalopathy/Altered mentation -May be secondary to hypercapnia -Monitor CHFAE -BNP elevated - 575 -Lasix -Cardiology consulted Anemia, stable -Protonix Acute on chronic renal failure (CKD stage III) Cellulitis LLE, improved -Chronic lymphedema per family Atrial flutter -Cardiology consulted Aortic stenosis -Cardiology consulted Dementia, chronic -CT head completed with some leukoaraiosis from prior visit HTN BRANT-TUTU DERAS STUDENT Aug 03, 2018 09:19 PAMELLA SANCHEZ DO Aug 03, 2018 10:09
--- NOTE | 2018-08-03 10:59 | NUR ---
PALLIATIVE CARE RN in to see this patient who is readmitted after discharge on Thursday the . I spoke with her niece who is one of the DPOA and they have decided that they would like to discharge to home with the caregivers already set up and instead of C they would like to change POC to include Hospice. She verbalized that they do not want to keep coming back and just want her comfortable. Explained to her that this is a hard decision but one that is in the patients best interest. It just is a change in thought processing, where we "don't freak out when the patient is hard to awaken". She understands that this will be hard to change but thinks that the patient would benefit from this POC.
[2018-08-03 12:00] VITALS: BP 100/64
[2018-08-03] MEDS: methylPREDNISolone 40 MG/ML (Solu-MEDROL) VIAL IV SCH ×3 (12:39→23:07)
--- NOTE | 2018-08-03 14:02 | Physical Therapy Evaluation ---
PT Evaluation-General Medical Diagnosis Admission Date Aug 02, 2018 at 19:00 Medical Diagnosis: Pneumonia, CHF, R Pleural Effusion Onset Date: Aug 02, 2018 Therapy Diagnosis Therapy Diagnosis: weakness, decreased mobility, decreased activity tolerance Height/Weight Height (Feet): 5 Height (Inches): 5.00 Weight (Pounds): 178 Weight (Ounces): 0.0 Precautions Precautions/Isolations: Fall Prevention, Standard Precautions, Pressure Ulcer Weight Bear Status Right Lower Extremity: Right Weight Bearing/Tolerated Left Lower Extremity: Left Weight Bearing/Tolerated Referral Physician: Dr. Gilliam Reason for Referral: Evaluation/Treatment Medical History Pertinent Medical History: Arthritis, CAD, Dementia, GERD, Heart Failure Current History EMS secondary to unresponsiveness and mentation Social History Home: Single Level Current Living Status: Other Family (Family takes turns and stays with her) Entry Into Home: Level Entry Prior/Core FIM Prior Level of Function Therapy Code Descriptions/Definitions Functional Hodgeman Measure: 0=Not Assessed/NA 4=Minimal Assistance 1=Total Assistance 5=Supervision or Setup 2=Maximal Assistance 6=Modified Hodgeman 3=Moderate Assistance 7=Complete Hodgeman Therapy Quality Codes: 6 Independent with activity with or without an assistive device 5 Patient requires set up or clean up by helper. Patient completes activity by themselves 4 Supervision or touching assist (CGA). [place] provide cues , steadying assist 3 The helper provides less than half the effort to complete the activity 2 The helper provides more than half the effort to complete the activity 1 Dependent. The helper does all the effort to complete an activity 7 Patient refused to complete or attempt activity 9 The patient did not perform the activity before the current illness or injury 88 Not attempted due to Medical conditions or safety concerns Functional Abilities and Goals: Independent: Patient completed the activities by him/herself, with or without an assistive device, with no assistance from a helper. Needed Some Help: Patient needed partial assistance from another person to complete activities. Dependent: A helper completed the activities for the patient. Unknown: Not Applicable: Bed Mobility: 4 Transfers (B,C,W/C) (FIM): 4 Gait: 1 Indoor Mobility (Ambulation): Needed Some Help Stairs: Not Applicalbe Prior Devices Use: Walker Prior Device Use: FWW PT Evaluation-Current Subjective Pt in bed with family in room. Family reports that pt is planning on discharging home tomorrow with hospice. Pt reports that she will try and stand but is not sure she can do too much. Pain Numeric Pain Scale: 0-No Pain Location: No Pain Reported Objective Patient Orientation: Person, Confused Problem Solving: Poor Attachments: Oxygen, Aguilera Catheter, IV ROM/Strength ROM Lower Extremities WNL Strength Lower Extremities WNL, did not test formally Integumentary/Posture Bowel Incontinence: No Bladder Incontinence: Aguilera Cath Neuromuscular (Tone, Coordination, Reflexes) NT Sensory Vision: Functional Hearing: Impaired Sensation Right Lower Extremit: Impaired Sensation Left Lower Extremity: Impaired Transfers Therapy Code Descriptions/Definitions Functional Hodgeman Measure: 0=Not Assessed/NA 4=Minimal Assistance 1=Total Assistance 5=Supervision or Setup 2=Maximal Assistance 6=Modified Hodgeman 3=Moderate Assistance 7=Complete Hodgeman Transfers (B, C, W/C) (FIM): 3 Scootin Supine to/from Sit: 3 Sit to/from Stand: 3 Gait Mode of Locomotion: Wheelchair Anticipated Mode of Locomotion: Wheelchair Gait (FIM): 1 Distance (FIM): 1=up to 49 ft Distance: 2' Gait Level of Assist: 3 Comments/Gait Description Pt side stepped towards head of bed with mod A x2 Balance Sitting Static: Good Sitting Dynamic: Good Standing Static: Fair Standing Dynamic: Poor Assessment/Needs Pt required mod A during bed mobility with LE. Pt required mod A with scooting. Pt required mod A x2 to perform sit<>stand from EOB. Pt was able to perform side step with one sitting recovery break. Pt is now in bed with all needs met. Rehab Potential: Poor Post Rehab Potential-Barriers: Diminished health and cognition PT Short Term Goals Short Term Goals Time Frame: Aug 10, 2018 Transfers (B,C,W/C) (FIM): 4 Gait (FIM): 1 Distance (FIM): 1=up to 49 ft Gait Distance Comment: 10' Gait Level of Assist: 4 Gait Assistive Device: FWW PT Plan Problem List Problem List: Activity Tolerance, Functional Strength, Safety, Balance, Gait, Transfer, Bed Mobility, ROM Treatment/Plan Treatment Plan: Continue Plan of Care Treatment Plan: Bed Mobility, Education, Functional Activity Manpreet, Functional Strength, Gait, Safety, Therapeutic Exercise, Transfers Treatment Duration: Aug 10, 2018 Frequency: 6 times per week Estimated Hrs Per Day: .25 hour per day Patient and/or Family Agrees t: Yes Discharge Recommendations Therapy D/C Recommendations: Home w/ Family Support, Other, See Comments ( Hospice) Equpiment Recommendations-D/C: Front Wheeled Walker, Standard Bedside Commode Time/GCodes Time In: 1335 Time Out: 1350 Total Billed Treatment Time: 15 Total Billed Treatment 1 visit EVmodC 15 min CLARENCE ZHANG PT Aug 03, 2018 14:02
--- NOTE | 2018-08-03 14:17 | History & Physical-Hospitalist ---
History of Present Illness HPI/Chief Complaint Pt is an 88yoCF known to me from recent admission who presented to the ER due to altered mental status. Family at bedside state she had been doing well with 24/7 care but last night they could not get her to arouse so they called EMS. She was brought here and found ot be SOB and in respiratory distress and admitted for further management. She denies any concerns to me today and does not remember much of last night. Family states that she is doing much better. They also wish to transition to hospice care at discharge. Source: patient Date Seen 08/03/18 Time Seen by a Provider: 12:30 Attending Physician Nithin Chavez MD PCP Devendra Trevino MD Referring Physician Date of Admission Aug 02, 2018 at 19:00 Home Medications & Allergies Home Medications Reviewed patient Home Medication Reconciliation performed by pharmacy medication reconciliations wafer fab technician and/or nursing. Patients Allergies have been reviewed. Allergies Allergies Coded Allergies Penicillins (Verified Allergy, Unknown, 07/19/18) celecoxib (Verified Allergy, Unknown, 07/19/18) hydrochlorothiazide (Verified Allergy, Unknown, 07/19/18) latex (Verified Allergy, Unknown, 07/19/18) rofecoxib (Verified Allergy, Unknown, 07/19/18) spironolactone (Verified Allergy, Unknown, 07/19/18) valdecoxib (Verified Allergy, Unknown, 07/19/18) Past Dxumwxl-Wenxsc-Maxnvt Hx Past Med/Social Hx: Reviewed Nursing Past Med/Soc Hx Patient Social History Marrital Status: Employed/Student: retired Alcohol Use: Denies Use Recreational Drug Use: No Smoking Status: Never a Smoker 2nd Hand Smoke Exposure: Yes ( SMOKED CIGARS) Physical Abuse Screen: No Sexual Abuse: No Recent Foreign Travel: No Contact w/other who traveled: No Recent Hopitalizations: Yes (discharged 07/30/18) Recent Infectious Disease Expo: No Immunizations Up To Date Tetanus Booster (TDap): Unknown Date of Pneumonia Vaccine: Mar 06, 2018 Date of Influenza Vaccine: Jun 05, 2018 Seasonal Allergies Seasonal Allergies: Yes Past Medical History Surgeries: Eye Surgery, Gallbladder, Hysterectomy, Joint Replacement, Orthopedic Respiratory: Asthma Currently Using CPAP: Yes (HAS CPAP MACHINE, BUT FAMILY REPORTS THAT PT DOES NOT USE IT) Cardiac: Atrial Fibrillation, Chronic Edema/Swelling, Heart Murmur, Hypertension, Valvular Heart Disease (severe aortic stenosis) Neurological: Dementia Genitourinary: Bladder Infection Gastrointestinal: Gastroesophageal Reflux, Chronic Diarrhea Musculoskeletal: Arthritis HEENT: Cataract Psychosocial: Anxiety Skin/Integumentary: Recent Skin Changes History of Blood Disorders: No Family History Reviewed Nursing Family Hx Cardiovascular disease 19 FATHER 19 MOTHER FH: CAD (coronary artery disease) 19 FATHER 19 MOTHER FH: cancer 19 MOTHER Hypertension 19 FATHER 19 MOTHER Heart Disease, Cancer, CAD Under 55 Years Old, CAD Over 55 Years Old, Hypertension Review of Systems ROS-Unable to Obtain: Dementia Constitutional: see HPI Physical Exam Physical Exam Vital Signs Vital Signs - First Documented 08/02/18 08/02/18 08/02/18 17:52 20:45 21:41 Temp 98.0 Pulse 66 Resp 25 B/P (MAP) 124/56 (78) Pulse Ox 96 O2 Delivery Nasal Cannula O2 Flow Rate 2.00 FiO2 50 Capillary Refill : Less Than 3 Seconds Height, Weight, BMI Height: 5'5.00" Weight: 178lbs. 0.0oz. 80.027171jl; 29.6 BMI Method:Stated General Appearance: No Apparent Distress, Chronically ill Respiratory: Lungs Clear, No Accessory Muscle Use, No Respiratory Distress Cardiovascular: Regular Rate, Rhythm, Systolic Murmur Gastrointestinal: Normal Bowel Sounds, Non Tender, Soft Extremity: No Calf Tenderness, Swelling Neurologic/Psychiatric: Alert, Disoriented Skin: Normal Color, Warm/Dry Results Results/Procedures Labs Laboratory Tests 08/02/18 17:56 08/03/18 06:00 Patient resulted labs reviewed. Imaging: Reviewed Imaging Report Assessment/Plan Admission Diagnosis Altered Mentation Admission Status: Observation Diagnosis/Problems Diagnosis/Problems (1) Dementia Status: Chronic Assessment & Plan: At baseline now AMS likely due to hypoxia Family has elected hospice care at discharge Palliative care consulted, appreciate recs Qualifiers: Dementia type: unspecified type Dementia behavioral disturbance: without behavioral disturbance Qualified Codes: F03.90 - Unspecified dementia without behavioral disturbance (2) Pleural effusion on right Status: Acute Assessment & Plan: Continue cefepime for persistent pneumonia Pulm consulted, appreciate recs Oxygen to keep sats >90 (3) Aortic stenosis Status: Chronic Assessment & Plan: severe to critical aortic stenosis Hospice consulted Plan to DC tomorrow with [facility] Palliative care consulted, appreciate assistance Qualifiers: Cardiac valve disease etiology: etiology unspecified Qualified Codes: I35.0 - Nonrheumatic aortic (valve) stenosis Clinical Quality Measures DVT/VTE Risk/Contraindication: Risk Factor Score Per Nursin RFS Level Per Nursing on Admit: 4+=Very High CHARLIE SHANKS MD Aug 03, 2018 14:17
[2018-08-03 15:50] VITALS: BP 82/48
[2018-08-03 20:00] VITALS: BP 85/49
[2018-08-03] MEDS: NS IV 1000 ML 1,000 ML IV SCH (20:51)
[2018-08-03] MEDS: AZITHROMYCIN INJECTION 500 MG in NS (IVPB) 250 ML IV SCH (20:52)
[2018-08-04 00:07] VITALS: BP 96/51
[2018-08-04] MEDS: RT-ALBUTEROL/IPRATROPIUM 3 ML (DUONEB) VIAL INH SCH ×3 (02:20→10:29)
[2018-08-04 04:57] VITALS: BP 92/54
[2018-08-04] MEDS: methylPREDNISolone 40 MG/ML (Solu-MEDROL) VIAL IV SCH (06:02)
[2018-08-04] MEDS ORDERED: CEFEPIME INJECTION 2,000 MG in NS (IVPB) 50 ML IV SCH (07:00)
[2018-08-04 07:44] LABS: HEMOGLOBIN 8.8 G/DL (11.5-16.0); MEAN PLATELET VOLUME 9.1 FL (7.4-10.4); RED CELL DISTRIBUTION WIDTH 14.6 % (10.0-14.5); WHITE BLOOD COUNT 12.4 10^3/uL (4.3-11.0)
[2018-08-04 08:00] VITALS: BP 93/51
[2018-08-04 08:14] LABS: ALBUMIN 2.6 GM/DL (3.2-4.5); BILIRUBIN,TOTAL 0.5 MG/DL (0.1-1.0); CALCIUM 8.4 MG/DL (8.5-10.1); CREATININE SERUM 1.24 MG/DL (0.60-1.30); POTASSIUM 4.3 MMOL/L (3.6-5.0); TOTAL PROTEIN 5.1 GM/DL (6.4-8.2)
[2018-08-04] MEDS ORDERED: CEFD300C3 PO (09:36)
--- NOTE | 2018-08-04 09:39 | Discharge Summary-Hospitalist ---
Diagnosis/Chief Complaint Date of Admission Aug 02, 2018 at 19:00 Date of Discharge Discharge Date: Aug 04, 2018 Admission Diagnosis Altered Mentation Discharge Diagnosis (1) Dementia Status: Chronic Assessment & Plan: At baseline now AMS likely due to hypoxia Family has elected hospice care at discharge Palliative care consulted, appreciate recs (2) Pleural effusion on right Status: Acute Assessment & Plan: Continue cefepime for persistent pneumonia Pulm consulted, appreciate recs Oxygen to keep sats >90 (3) Aortic stenosis Status: Chronic Assessment & Plan: severe to critical aortic stenosis Hospice consulted Plan to DC tomorrow with [facility] Palliative care consulted, appreciate assistance Discharge Summary Discharge Physical Exam Allergies: Coded Allergies: Penicillins (Verified Allergy, Unknown, 07/19/18) celecoxib (Verified Allergy, Unknown, 07/19/18) hydrochlorothiazide (Verified Allergy, Unknown, 07/19/18) latex (Verified Allergy, Unknown, 07/19/18) rofecoxib (Verified Allergy, Unknown, 07/19/18) spironolactone (Verified Allergy, Unknown, 07/19/18) valdecoxib (Verified Allergy, Unknown, 07/19/18) Vitals & I&Os Vital Signs Date Time Temp Pulse Resp B/P (MAP) Pulse Ox O2 Delivery O2 Flow Rate FiO2 08/04/18 13:24 79 16 93/51 92 Nasal Cannula 3.00 08/04/18 08:00 97.2 08/02/18 21:41 50 General Appearance: No Apparent Distress, Chronically ill Neurologic/Psychiatric: Alert, Oriented x3 Hospital Course Pt was admitted for altered mentation and hypoxia following a long hospital course due to SBO. She was found to have persistent pneumonia and was treated with IV abx. Family elected during this admission to enroll in hospice with plans to return home as soon as possible. Palliative Care was consulted and arrangement were made with [facility] for discharge home. She was discharged home in stable condition. Labs (last 24 hrs) Laboratory Tests 08/04/18 07:20: White Blood Count 12.4H, Red Blood Count 2.96L, Hemoglobin 8.8L, Hematocrit 28L , Mean Corpuscular Volume 96, Mean Corpuscular Hemoglobin 30, Mean Corpuscular Hemoglobin Concent 31L, Red Cell Distribution Width 14.6H, Platelet Count 426H, Mean Platelet Volume 9.1, Sodium Level 137, Potassium Level 4.3, Chloride Level 102, Carbon Dioxide Level 26, Anion Gap 9, Blood Urea Nitrogen 35H, Creatinine 1.24, Estimat Glomerular Filtration Rate 41, BUN/Creatinine Ratio 28, Glucose Level 127H, Calcium Level 8.4L, Corrected Calcium 9.5, Total Bilirubin 0.5, Aspartate Amino Transf (AST/SGOT) 20, Alanine Aminotransferase (ALT/SGPT) 26, Alkaline Phosphatase 67, Total Protein 5.1L, Albumin 2.6L Microbiology 08/02/18 Blood Culture - Preliminary, Resulted No growth 08/02/18 Influenza Types A,B Antigen ([place]) - Final, Complete 08/02/18 Urine Culture - Final, Complete NO GROWTH Patient resulted labs reviewed. Pending Labs Laboratory Tests 08/04/18 07:20: White Blood Count 12.4, Red Blood Count 2.96, Hemoglobin 8.8, Hematocrit 28, Mean Corpuscular Volume 96, Mean Corpuscular Hemoglobin 30, Mean Corpuscular Hemoglobin Concent 31, Red Cell Distribution Width 14.6, Platelet Count 426, Mean Platelet Volume 9.1, Sodium Level 137, Potassium Level 4.3, Chloride Level 102, Carbon Dioxide Level 26, Anion Gap 9, Blood Urea Nitrogen 35, Creatinine 1.24, Estimat Glomerular Filtration Rate 41, BUN/Creatinine Ratio 28, Glucose Level 127, Calcium Level 8.4, Corrected Calcium 9.5, Total Bilirubin 0.5, Aspartate Amino Transf (AST/SGOT) 20, Alanine Aminotransferase (ALT/SGPT) 26, Alkaline Phosphatase 67, Total Protein 5.1, Albumin 2.6 Imaging: Reviewed Imaging Report Discussion & Recommendations Discharge Planning: >30 minutes discharge planning Discharge Home Medications: Active Scripts Active Cefdinir 300 Mg Capsule 300 Mg PO BID Reported K-Tab ER (Potassium Chloride) 10 Meq Tablet.er 20 Meq PO DAILY TAKES 2 (10MEQ) TABLETS Omeprazole 20 Mg Capsule.dr 20 Mg PO DAILY Gabapentin 300 Mg Capsule 600 Mg PO DAILY TAKES 2 (300MG) CAPSULES Furosemide 40 Mg Tablet 40 Mg PO DAILY Instructions to patient/family Please see electronic discharge instructions given to patient. Clinical Quality Measures DVT/VTE Risk/Contraindication: Risk Factor Score Per Nursin RFS Level Per Nursing on Admit: 4+=Very High Problem Qualifiers (1) Dementia: Dementia type: unspecified type Dementia behavioral disturbance: without behavioral disturbance Qualified Codes: F03.90 - Unspecified dementia without behavioral disturbance (2) Aortic stenosis: Cardiac valve disease etiology: etiology unspecified Qualified Codes: I35.0 - Nonrheumatic aortic (valve) stenosis CHARLIE SHANKS MD Aug 04, 2018 09:39
--- NOTE | 2018-08-04 10:04 | Physical Therapy Daily Note ---
PT Daily Note-Current Subjective Pt. in bed with family at bedside. Pt. smiles and states she isnt sure what she can do but she will try. Family share they are working on DC today within next hour with ambulance TRF Pain Location: No Pain Reported Mental Status Patient Orientation: Eyes Open Attachments: Oxygen, IV Transfers Therapy Code Descriptions/Definitions Functional [place] Measure: 0=Not Assessed/NA 4=Minimal Assistance 1=Total Assistance 5=Supervision or Setup 2=Maximal Assistance 6=Modified [place] 3=Moderate Assistance 7=Complete [place] Therapy Quality Codes: 6 Independent with activity with or without an assistive device 5 Patient requires set up or clean up by helper. Patient completes activity by themselves 4 Supervision or touching assist (CGA). [place] provide cues , steadying assist 3 The helper provides less than half the effort to complete the activity 2 The helper provides more than half the effort to complete the activity 1 Dependent. The helper does all the effort to complete an activity 7 Patient refused to complete or attempt activity 9 The patient did not perform the activity before the current illness or injury 88 Not attempted due to Medical conditions or safety concerns Weight Bearing Right Lower Extremity: Right Weight Bearing/Tolerated Left Lower Extremity: Left Weight Bearing/Tolerated Exercises Supine Ex: Ankle pumps, Quad Set, Rolling, Heel Slides, Short Arc Quads, Straight leg raise (assist), Hip abd/add Supine Reps: 12 Assessment Current Status: Fair Progress PT Short Term Goals Short Term Goals Time Frame: Aug 10, 2018 Transfers (B,C,W/C) (FIM): 4 Gait (FIM): 1 Distance (FIM): 1=up to 49 ft Gait Distance Comment: 10' Gait Level of Assist: 4 Gait Assistive Device: FWW PT Plan Treatment/Plan Treatment Plan: Discontinue PT Treatment Plan: Bed Mobility, Education, Functional Activity Manpreet, Functional Strength, Gait, Safety, Therapeutic Exercise, Transfers Treatment Duration: Aug 10, 2018 Frequency: 6 times per week Estimated Hrs Per Day: .25 hour per day Patient and/or Family Agrees t: Yes Safety Risks/Education Patient Education: Transfer Techniques (rolling) Time/GCodes Time In: 945 Time Out: 1000 Total Billed Treatment Time: 15 Total Billed Treatment 1,EX15m G Codes Necessary: No 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
--- NOTE | 2018-08-04 11:27 | Cardiology Progress Note ---
Subjective Date Seen by Provider: Aug 04, 2018 Time Seen by Provider: 08:30 Subjective/Events-last exam Patient is resting comfortably in bed, no new complaints. Focused Exam Lactate Level 08/02/18 17:56: Lactic Acid Level 0.72 Objective-Cardiology Exam Last Set of Vital Signs Vital Signs 08/02/18 08/04/18 08/04/18 21:41 08:00 10:29 Temp 97.2 Pulse 79 Resp 16 B/P (MAP) 93/51 (65) Pulse Ox 92 O2 Delivery Nasal Cannula O2 Flow Rate 3.00 FiO2 50 Capillary Refill : Less Than 3 Seconds I&O Intake and Output 08/04/18 00:00 Intake Total 2100 ml Output Total 900 ml Balance 1200 ml Intake Oral 1800 ml IV Total 300 ml Output Urine Total 900 ml General: Alert, Oriented X3, Cooperative HEENT: Atraumatic, PERRLA Neck: Supple, No JVD, No Thyromegaly Lungs: Other (rhonci bilaterally) Heart: Regular Rate, Normal S1, Normal S2, Other (systolic murmur at LSB) Abdomen: Soft Extremities: No Edema Skin: No Rashes, No Breakdown Neuro: Normal Gait, Normal Speech Psych/Mental Status: Mental Status NL, Mood NL Results Lab Laboratory Tests 08/04/18 07:20 A/P-Cardiology Admission Diagnosis Change in mental status Pneumonia Chronic atrial fibrillation Hypotension Assessment/Plan Change in mental status, hypoxemia and hypotension, improving at this time. Questionable pneumonia, started on antibiotic, workup by primary care team. Anemia, continue to monitor H&H Hypotension, multifactorial, monitor H&H and fluid balance closely Chronic atrial fibrillation, rate is controlled. Continue to monitor [id number] score of 6, yearly risk of stroke without oral anticoagulation is 9.8 percent. Increased risk of bleeding especially with the worsening anemia, monitor closely, hold Eliquis for today Critical aortic valve stenosis, valve area is 0.6-0.7 cm with a gradient across the valve around 110 mmHg, conservative management due to her age and her multiple comorbid condition Chronic renal insufficiency. Continue to monitor renal function closely COPD/obstructive sleep apnea uses C Pap at home, currently on Cipro Pap History of congestive heart failure with chronic compensated left ventricular diastolic dysfunction, normal systolic function, continue to monitor Chronic pedal edema, maintained on diuretics, has cellulitis and ulceration on her leg has been managed for the past year by her primary care physician History of pulmonary hypertension with cor pulmonale, continue to monitor Hyperlipidemia, continue to monitor at this time Carotid stenosis, mild nonobstructive disease bilaterally, continue to monitor Peripheral neuropathy, maintained on Neurontin as an outpatient. Right bundle branch block. Chronic, no changes. Continue to monitor Peripheral vascular disease, no recent workup was done. Continue to monitor Degenerative joint disease, arthritic pain Anxiety, Alzheimer dementia, patient was able to stay at home with her family prior to this admission Patient being discharged home on hospice today. Clinical Quality Measures DVT/VTE Risk/Contraindication: Risk Factor Score Per Nursin RFS Level Per Nursing on Admit: 4+=Very High SOSA MONTES Aug 04, 2018 11:27
[2018-08-04 13:24] VITALS: BP 93/51
== END 2018-08-04 12:40 | disposition hospice, home (50) | DRG 193 ==
LOC: EDUNIT# 17:51 → ER 17:52 → 4TH 19:00
PROVIDERS: ADMIT Internal Medicine; ATTEND Internal Medicine
DX: J18.9 Pneumonia, unspecified organism (principal); J96.22 Acute and chronic respiratory failure with hypercapnia; E87.2 Acidosis; G93.41 Metabolic encephalopathy; I13.0 Hypertensive heart and chronic kidney disease with heart failure and stage 1 through stage 4 chronic kidney disease, or unspecified chronic kidney disease; I50.33 Acute on chronic diastolic (congestive) heart failure; N18.3 Chronic kidney disease, stage 3 (moderate); N17.9 Acute kidney failure, unspecified; Z66 Do not resuscitate; Z51.5 Encounter for palliative care; L03.116 Cellulitis of left lower limb; I48.92 Unspecified atrial flutter; J90 Pleural effusion, not elsewhere classified; D64.9 Anemia, unspecified; I89.0 Lymphedema, not elsewhere classified; I35.0 Nonrheumatic aortic (valve) stenosis; G30.9 Alzheimer's disease, unspecified; F02.80 Dementia in other diseases classified elsewhere, unspecified severity, without behavioral disturbance, psychotic disturbance, mood disturbance, and anxiety; G47.33 Obstructive sleep apnea (adult) (pediatric); J44.9 Chronic obstructive pulmonary disease, unspecified; I95.9 Hypotension, unspecified; I48.2 Chronic atrial fibrillation; K21.9 Gastro-esophageal reflux disease without esophagitis; G62.9 Polyneuropathy, unspecified; E78.5 Hyperlipidemia, unspecified; F41.9 Anxiety disorder, unspecified; F22 Delusional disorders; M19.91 Primary osteoarthritis, unspecified site; R01.1 Cardiac murmur, unspecified; Z96.652 Presence of left artificial knee joint
CPT/HCPCS: 36415; 36600; 51702; 71045; 80053; 81000; 82805; 83605; 83880; 84145; 84484; 85025; 85027; 85610; 85730; 87040; 87088; 87804; 93005; 93306; 94640; 94644; 94660; 94760; 96365; 96375